=== PATIENT | female | born 1990 | race Caucasian/White ===

== ENCOUNTER 2023-03-29 07:09 | Outpatient (CLI) | payer OTHER, SELFPAY ==
--- NOTE | 2023-03-29 07:15 | CRLHL7_ITS ---
For Patients: As a result of the Cures Act, medical imaging exams and procedure reports are released immediately into your electronic medical record. You may view this report before your referring provider. If you have questions, please contact your health care provider. INDICATION: First trimester scan, establish dates. COMPARISON: None. TECHNIQUE: Real-time almodovar-scale imaging of the pelvis was performed. FINDINGS: Sonographic imaging demonstrates a single living intrauterine gestation. The embryo demonstrates a regular cardiac rate measuring 171 beats per minute. The embryo`s crown-rump length measurement of 2.1 cm corresponds to a gestational age of 8 weeks 5 days with a sonographic due date of 11/03/2023. There is a normal-appearing yolk sac. There are no gross abnormalities noted within the embryo at this early state of development. The gestational sac has a normal appearance. There is no evidence of a perigestational hemorrhage. The amount of fluid within the sac appears appropriate for gestational age. The cervix is closed. The myometrium appears normal. The ovaries are of normal size. Corpus luteal cyst left ovary. There are no suspicious fluid collections noted in the cul-de-sac. IMPRESSION: Normal first trimester OB ultrasound exam. Gestational age calculated at 8 weeks 5 days with a sonographic due date of 11/03/2023. Dictated by Jasbir Stearns MD @ 03/29/2023 10:24:37 AM (Electronically Signed)
== END 2023-03-29 07:10 | disposition home or self-care (01) ==
LOC: US 07:09
PROVIDERS: Visit Provider Physician Assistant
DX: Z34.91 Encounter for supervision of normal pregnancy, unspecified, first trimester (principal); Z3A.08 8 weeks gestation of pregnancy
CPT/HCPCS: 76817; 82565; 82570; 84156; 84450; 84460; 84520; 86592; 86703; 86762; 86787; 86803; 86850; 86900; 86901; 87086; 87340; 87491; 87591

== ENCOUNTER 2023-04-06 09:00 | Outpatient (CLI) | payer OTHER, SELFPAY | END 2023-04-06 09:01 | disposition home or self-care (01) | LOC: NFLDREF 04-09 09:00 | PROVIDERS: Visit Provider Physician Assistant | DX: O14.90 Unspecified pre-eclampsia, unspecified trimester (principal) | CPT/HCPCS: 82570; 84156 ==

== ENCOUNTER 2023-05-24 10:23 | Outpatient (CLI) | payer OTHER, SELFPAY | END 2023-05-24 10:24 | disposition home or self-care (01) | LOC: NFLDREF 10:27 | PROVIDERS: Visit Provider Obstetrics & Gynecology | DX: Z34.92 Encounter for supervision of normal pregnancy, unspecified, second trimester (principal); Z3A.16 16 weeks gestation of pregnancy | CPT/HCPCS: 81511 ==

== ENCOUNTER 2023-06-22 07:58 | Outpatient (CLI) | payer OTHER, SELFPAY ==
--- NOTE | 2023-06-22 08:15 | CRLHL7_ITS ---
For Patients: As a result of the Century Cures Act, medical imaging exams and procedure reports are released immediately into your electronic medical record. You may view this report before your referring provider. If you have questions, please contact your health care provider. INDICATION: Evaluate anatomy. COMPARISON: 03/29/2023 TECHNIQUE: Real time almodovar scale imaging of the fetus was performed as well as color Doppler analysis of the umbilical vessels. FINDINGS: Sonographic imaging demonstrates a single living intrauterine gestation. Fetus demonstrates a regular cardiac rate of 137 beats per minute. Fetus has a breech position. The placenta lies anteriorly without evidence of placenta previa. Placental edge located 6.2 cm from the internal cervical os. Amniotic fluid volume appears normal. Single deepest vertical pocket: 3.5 cm. The cervix is closed and measures 4.0 cm in length. The composite ultrasound gestational age is calculated at 20 weeks 6 days with an estimated sonographic due date of 11/03/2023. The estimated weight is 388 grams which lies at the 49th %. The following biometric measurements were obtained: Biparietal diameter: 4.7 cm/20 weeks 1 day 20th% Head circumference: 18.5 cm/20 weeks 6 days 40th% Abdominal circumference: 15.9 cm/21 weeks 0 days 48th% Femur length: 3.5 cm/21 weeks 0 days 45th% The HC/AC ratio measures: 1.16 range (1.06-1.25) On anatomic survey, there is a normal appearance of the cerebral ventricles, cavum septi pellucidi, cisterna magna and cerebellum. The nose, lips, and facial profile appear normal. The cervical, thoracic and lumbar spine are well visualized and appear normal. There is a normal four-chamber heart view and the left and right ventricular outflow tracts appear normal. The diaphragm and stomach appear normal. The kidneys and bladder also appear normal. There is a normal three-vessel cord and cord insertion site. The four extremities appear normal. IMPRESSION: Normal OB ultrasound exam with concordance of clinical and sonographic dating. No intrinsic abnormalities noted on anatomic survey. Dictated by Jasbir Stearns MD @ 06/22/2023 1:24:22 PM (Electronically Signed)
== END 2023-06-22 07:59 | disposition home or self-care (01) ==
LOC: US 08:00
PROVIDERS: Visit Provider Obstetrics & Gynecology
DX: Z34.92 Encounter for supervision of normal pregnancy, unspecified, second trimester (principal); Z3A.20 20 weeks gestation of pregnancy
CPT/HCPCS: 76805

== ENCOUNTER 2023-08-24 08:33 | Outpatient (CLI) | payer OTHER, SELFPAY | END 2023-08-24 08:34 | disposition home or self-care (01) | LOC: NFLDREF 08-30 15:48 | PROVIDERS: Visit Provider Obstetrics & Gynecology | DX: Z34.82 Encounter for supervision of other normal pregnancy, second trimester (principal) | CPT/HCPCS: 86592 ==

== ENCOUNTER 2023-08-31 08:16 | Outpatient (CLI) | payer OTHER, SELFPAY | END 2023-08-31 08:17 | disposition home or self-care (01) | LOC: NFLDREF 09-03 12:36 | PROVIDERS: Visit Provider Obstetrics & Gynecology | DX: R73.09 Other abnormal glucose (principal); O10.913 Unspecified pre-existing hypertension complicating pregnancy, third trimester; Z3A.29 29 weeks gestation of pregnancy | CPT/HCPCS: 82565; 82570; 82951; 82952; 84156; 84450; 84460; 84520 ==

== ENCOUNTER 2023-09-07 08:08 | Outpatient (CLI) | payer OTHER, SELFPAY ==
--- NOTE | 2023-09-07 08:15 | CRLHL7_ITS ---
For Patients: As a result of the Cures Act, medical imaging exams and procedure reports are released immediately into your electronic medical record. You may view this report before your referring provider. If you have questions, please contact your health care provider. INDICATION: ESSENTIAL HYPERTENSION TECHNIQUE: Real time almodovar scale imaging of the fetus was performed. COMPARISON: 06.22.23 FINDINGS: Sonographic imaging demonstrates a single living intrauterine gestation. Fetus demonstrates a regular cardiac rate of 129 beats per minute. Fetus has a vertex position. The placenta lies anteriorly. Amniotic fluid volume appears normal and there is a single deepest pocket of 5.2 cm. The estimated weight is 1945gm which lies at the 53rd %. On the prior OB ultrasound dated 06/22/2023 the estimated weight was at the 49th percentile. BPD 38th percentile. HC 31st percentile. AC 54th percentile. FL 64th percentile. The fetus was active and demonstrated normal breathing movements. There was normal flexion and extension of the trunk and extremities. IMPRESSION: Normal biophysical profile score 8/8. Sonographic gestational age 32 weeks 2 days and sonographic due date 10/31/2023. Good correlation with dates. Normal interval growth. Estimated weight 53rd percentile. Abdominal circumference 54th percentile. Dictated by Jasbir Stearns MD @ 09/07/2023 9:20:24 AM (Electronically Signed)
== END 2023-09-07 08:09 | disposition home or self-care (01) ==
LOC: US 08:10
PROVIDERS: Visit Provider Obstetrics & Gynecology
DX: O10.013 Pre-existing essential hypertension complicating pregnancy, third trimester (principal); Z3A.32 32 weeks gestation of pregnancy
CPT/HCPCS: 76816; 76819; 82565; 82570; 84156; 84450; 84460; 84520

== ENCOUNTER 2023-09-14 12:36 | Outpatient (CLI) | payer OTHER, SELFPAY ==
--- NOTE | 2023-09-14 13:00 | CRLHL7_ITS ---
For Patients: As a result of the Century Cures Act, medical imaging exams and procedure reports are released immediately into your electronic medical record. You may view this report before your referring provider. If you have questions, please contact your health care provider. INDICATION: CHRONIC HYPERTENSION COMPARISON: 09/07/2023 TECHNIQUE: Real time almodovar scale imaging of the fetus was performed. Without non-stress testing. FINDINGS: Sonographic imaging demonstrates a single living intrauterine gestation. Fetus demonstrates a regular cardiac rate of 137 beats per minute. Fetus has a vertex position. The amniotic fluid volume appears normal and there is a single deepest pocket measurement of 5.2 cm. The fetus was active and demonstrated normal breathing movements. There was normal flexion and extension of the trunk and extremities. IMPRESSION: Normal biophysical profile score of 8 out of 8. Dictated by Jasbir Stearns MD @ 09/14/2023 1:51:15 PM (Electronically Signed)
== END 2023-09-14 12:37 | disposition home or self-care (01) ==
LOC: US 12:36
PROVIDERS: Visit Provider Obstetrics & Gynecology
DX: O10.919 Unspecified pre-existing hypertension complicating pregnancy, unspecified trimester (principal)
CPT/HCPCS: 76819; 82565; 82570; 84156; 84450; 84460; 84520

== ENCOUNTER 2023-09-21 08:13 | Outpatient (CLI) | payer OTHER, SELFPAY ==
--- NOTE | 2023-09-21 08:15 | CRLHL7_ITS ---
For Patients: As a result of the Century Cures Act, medical imaging exams and procedure reports are released immediately into your electronic medical record. You may view this report before your referring provider. If you have questions, please contact your health care provider. INDICATION: chronic HTN COMPARISON: 09/14/2023 TECHNIQUE: Real time almodovar scale imaging of the fetus was performed. Without non-stress testing. FINDINGS: Sonographic imaging demonstrates a single living intrauterine gestation. Fetus demonstrates a regular cardiac rate of 145 beats per minute. Fetus has a vertex position. The amniotic fluid volume appears normal and there is a single deepest pocket measurement of 4.3 cm. The fetus was active and demonstrated normal breathing movements. There was normal flexion and extension of the trunk and extremities. IMPRESSION: Normal biophysical profile score of 8 out of 8. Dictated by Jasbir Stearns MD @ 09/21/2023 12:03:20 PM (Electronically Signed)
== END 2023-09-21 08:14 | disposition home or self-care (01) ==
LOC: US 08:14
PROVIDERS: Visit Provider Obstetrics & Gynecology
DX: O10.919 Unspecified pre-existing hypertension complicating pregnancy, unspecified trimester (principal)
CPT/HCPCS: 76819; 82565; 82570; 84156; 84450; 84460; 84520

== ENCOUNTER 2023-09-28 08:09 | Outpatient (CLI) | payer OTHER, SELFPAY ==
--- NOTE | 2023-09-28 08:15 | US_ITS ---
Final Report Patient: SCOOBY UPTON Facility:?[facility] Patient ID:?[id number] Site Patient ID:?[id number]. Site :?1990 Study:?US OB Pelvis -09/28/2023 8:47:54 AM Ordering Physician:?Genesis Carias Final Report: INDICATION: chronic HTN COMPARISON: 09/21/2023 TECHNIQUE: Real time almodovar scale imaging of the fetus was performed. Without non-stress testing. FINDINGS: Sonographic imaging demonstrates a single living intrauterine gestation. Fetus demonstrates a regular cardiac rate of 152 beats per minute. Fetus has a vertex position. The amniotic fluid volume appears normal and there is a single deepest pocket measurement of 3.3 cm. The fetus was active and demonstrated normal breathing movements. There was normal flexion and extension of the trunk and extremities. IMPRESSION: Normal biophysical profile score of 8 out of 8. Dictated by Jasbir Stearns MD @ 09/28/2023 10:43:13 AM (Electronic Signature)
== END 2023-09-28 08:10 | disposition home or self-care (01) ==
LOC: US 08:10
PROVIDERS: Visit Provider Obstetrics & Gynecology
DX: O10.919 Unspecified pre-existing hypertension complicating pregnancy, unspecified trimester (principal)
CPT/HCPCS: 76819; 82565; 82570; 84156; 84450; 84460; 84520

== ENCOUNTER 2023-10-05 08:17 | Outpatient (CLI) | payer OTHER, SELFPAY ==
--- NOTE | 2023-10-05 08:15 | US_ITS ---
Patient: SCOOBY UPTON Facility:?[facility] Patient ID:?[id number] Site Patient ID:?[id number]. Site :?1990 Study:?US-OB Pelvis -10/05/2023 9:17:14 AM Ordering Physician:JUVENAL LIANG Final Report: INDICATION: Gestational diabetes TECHNIQUE: Real time almodovar scale imaging of the fetus was performed. COMPARISON: 09/28/2023 FINDINGS: Sonographic imaging demonstrates a single living intrauterine gestation. Fetus demonstrates a regular cardiac rate of 149 beats per minute. Fetus has a vertex position. The placenta lies anteriorly. Amniotic fluid volume appears normal and there is a single deepest pocket of 5.6 cm. The estimated weight is 2643gm which lies at the 35th %. On the prior OB ultrasound dated 09/07/2023 the estimated weight was at the 53rd percentile. BPD 44th percentile. HC is 28th percentile. AC is 31st percentile. FL 41st percentile. The fetus was active and demonstrated normal breathing movements. There was normal flexion and extension of the trunk and extremities. IMPRESSION: Normal biophysical profile score 8/8. Sonographic gestational age 35 weeks 4 days and sonographic due date of 11/05/2023. Estimated weight 35th percentile. Abdominal circumference 31st percentile. Dictated by Jasbir Stearns MD @ 10/05/2023 11:42:28 AM Signed by:?Jasbir Stearns MD @10/05/2023 11:42:28 AM (Electronic Signature)
== END 2023-10-05 08:18 | disposition home or self-care (01) ==
LOC: US 08:18
PROVIDERS: Visit Provider Obstetrics & Gynecology
DX: O24.419 Gestational diabetes mellitus in pregnancy, unspecified control (principal); Z3A.35 35 weeks gestation of pregnancy
CPT/HCPCS: 76816; 76819; 82565; 82570; 84156; 84450; 84460; 84520; 87081; 87653

== ENCOUNTER 2023-10-12 08:04 | Outpatient (CLI) | payer OTHER, SELFPAY ==
--- NOTE | 2023-10-12 08:15 | US_ITS ---
Patient: SCOOBY UPTON Facility:?[facility] Patient ID:?[id number] Site Patient ID:?[id number]. Site :?1990 Study:?US-OB Pelvis OB BPP-10/12/2023 8:40:54 AM Ordering Physician:?JUVENAL HEARD Final Report: INDICATION: PRIMARY HYPERTENSION COMPARISON: 10/05/2023 TECHNIQUE: Real time almodovar scale imaging of the fetus was performed. Without non-stress testing. FINDINGS: Sonographic imaging demonstrates a single living intrauterine gestation. Fetus demonstrates a regular cardiac rate of 134 beats per minute. Fetus has a vertex position. The amniotic fluid volume appears normal and there is a single deepest pocket measurement of 5.2 cm. The fetus was active and demonstrated normal breathing movements. There was normal flexion and extension of the trunk and extremities. IMPRESSION: Normal biophysical profile score of 8 out of 8. Dictated by Jasbir Stearns MD @ 10/12/2023 10:53:54 AM Signed by:?Jasbir Stearns MD @10/12/2023 10:53:54 AM (Electronic Signature)
== END 2023-10-12 08:05 | disposition home or self-care (01) ==
LOC: US 08:04
PROVIDERS: Visit Provider Obstetrics & Gynecology
DX: O10.919 Unspecified pre-existing hypertension complicating pregnancy, unspecified trimester (principal)
CPT/HCPCS: 76819; 82565; 82570; 84156; 84450; 84460; 84520

== ENCOUNTER 2023-10-19 09:01 | Outpatient (CLI) | payer OTHER, SELFPAY ==
--- NOTE | 2023-10-19 09:15 | US_ITS ---
Patient: SCOOBY UPTON Facility:?[facility] Patient ID:?[id number] Site Patient ID:?[id number]. Site :?1990 Study:?US-OB Pelvis BPP-10/19/2023 9:46:10 AM Ordering Physician:?Genesis Carias Final Report: INDICATION: Pre-existing hypertension COMPARISON: 10/12/2023 TECHNIQUE: Real time almodovar scale imaging of the fetus was performed. Without non-stress testing. FINDINGS: Sonographic imaging demonstrates a single living intrauterine gestation. Fetus demonstrates a regular cardiac rate of 141 beats per minute. Fetus has a vertex position. The amniotic fluid volume appears normal and there is a single deepest pocket measurement of 3.5 cm. The fetus was active and demonstrated normal breathing movements. There was normal flexion and extension of the trunk and extremities. IMPRESSION: Normal biophysical profile score of 8 out of 8. Dictated by Jasbir Stearns MD @ 10/19/2023 10:04:05 AM Signed by:?Jasbir Stearns MD @10/19/2023 10:04:05 AM (Electronic Signature)
== END 2023-10-19 09:02 | disposition home or self-care (01) ==
LOC: US 09:01
PROVIDERS: Visit Provider Obstetrics & Gynecology
DX: O10.919 Unspecified pre-existing hypertension complicating pregnancy, unspecified trimester (principal)
CPT/HCPCS: 76819; 82565; 82570; 84156; 84450; 84460; 84520

== ENCOUNTER 2023-10-22 17:05 | Inpatient (IN) | payer OTHER, SELFPAY ==
[2023-10-22 17:15] VITALS: BP 144/99
[2023-10-22 17:25] VITALS: BMI 35.5
[2023-10-22 17:35] VITALS: BP 139/91; PULSE 103; RESP 20; TEMP 36.9
[2023-10-22 17:50] VITALS: BP 136/94; RESP 20
--- NOTE | 2023-10-22 18:15 | P.LDBA_ITS ---
Subjective History of Present Illness Time Seen by Provider: 18:16 Date Seen: 10/22/23 Narrative: Patient is being admitted to Labor and Delivery for IOL due to chronic HTN on medication. She is a 33 year old at 38.2 weeks gestation. Her full history and physical was dictated by Dr. Toney on 10/12/23. Please see this for details. No interval changes since she last saw us in clinic. Active movement. Rare contractions. Denies bleeding or abnormal vaginal discharge. Specific Issues/Plans Spouse: Carlos. Daughter: Mily. Baby: Girl. 1. Chronic hypertension * Labetalol 100 mg b.i.d. * ASA 81mg * Baseline pre E labs: all normal, 24 hour urine for protein: 11 * Growth ultrasound Q 4 weeks starting at 32 weeks * 10/05/23: Cephalic, SDP 5.6, EFW 35%, AC 31% * testing starting at 32 weeks = Weekly BPP * Weekly pre E labs starting at 32 weeks * Consider level 2 US/MFM consult: Patient declines at the moment, prefer FAS and if abnormal then MFM * Growth 09/07: 53%ile * Medically indicated delivery as soon as 37 weeks, discussed we could consider prolonging (38 weeks or so) if BPs remain well controlled. Pt desires 38 weeks if BP remain well controlled, scheduling form for 10/21 completed 2. Migraines; none in 3rd trimester 3. Obesity, BMI 36.1 Hemoglobin A1c: 5.3% 4. Varicella nonimmune Vaccination 5. Covid within 27 wks 08/08/23. 6. Gestational diabetes, diet controlled - Nutrition consult 09/07 7. Anemia. Hb 10.9 on 10/11. -Supplemental iron Flu vaccine: 05/24/23 TDAP 08/24/23 RSV 09/07/23 OB - Problem Based A/P Additional Plan (1) Chronic hypertension complicating or reason for care during : Status: Acute Plan: - She report only taking 50 mg of labetalol this AM due to her BP being lower than normal when she checked it at the time. She usually take her PM dose at 9 PM. - Currently BP 130s/90s. She is currently asymptomatic. - Will continue to monitor. We will give her the PM labetalol early at around 7pm if needed. (2) Gestational diabetes: Status: Acute (3) : Status: Acute (4) Anemia: Status: Acute Plan - Will proceed with IOL - Cervical ripening with cook cath. Placed at 1815 with 50 cc cervical balloon/60 cc vaginal balloon. - Will start pitocin at midnight. She is not currently mikal. OB Exam Physical Exam Vital signs: Physical exam: General: No acute distress Psych: Alert and oriented x3, full affect HEENT: Normocephalic, atraumatic Lungs: Unlabored breathing Neuro: No focal deficit. Mentating appropriately Pelvic exam: /-3, moderately soft, posterior
[2023-10-22 19:21] VITALS: BP 128/85; PULSE 99
[2023-10-22] MEDS: LABETALOL HCL 100 MG TABLET PO (20:29)
[2023-10-22] MEDS: hydrOXYzine pamoate 25 MG CAPSULE 100 MG PO (22:09)
[2023-10-22] MEDS: MORPHINE 10 MG/ML inj IM (22:10)
[2023-10-23] VITALS (48 sets, daily range): BP systolic 101–186; BP diastolic 59–101; PULSE 84–112; RESP 18; TEMP 36.6–36.9; O2SAT 99–100
[2023-10-23] MEDS: OXYTOCIN 30 unit/500 ML in NS 30 UNIT/500 ML BAG IVPB (00:09)
[2023-10-23] MEDS: LACTATED RINGERS 1000 ML 1,000 ML 125 ML IV ×3 (00:10→15:48)
[2023-10-23] MEDS: LABETALOL HCL 100 MG TABLET PO ×2 (07:53→19:45)
--- NOTE | 2023-10-23 07:58 | P.OBPN_ITS ---
Subjective Time Seen by Provider: 07:45 Date Seen: 10/23/23 Narrative: Patient is comfortable this morning, got some sleep overnight. Cook catheter removed around 6:00 am. On slow pitocin infusion since midnight. Patient largely unaware of contractions. BP well controlled, due for morning dose of labetalol. On diabetic diet. Objective Exam: General appearance: Alert, cooperative, comfortable. Vital Signs: Last Vital Signs Temp 98.4 F 10/23/23 01:50 Pulse 85 10/23/23 02:24 Resp 20 10/22/23 17:50 BP 122/84 10/23/23 02:24 Pelvic Exam Dilation (cm): 4-5 cm Effacement (%): 60 Station: -1 Comments: Posterior, vertex well applied Contractions Monitor mode: External Contraction Frequency: 1-4 minutes Contraction pattern: Irregular Contraction intensity: Mild Pitocin Rate (mU/min): 6 Assessment Assessment: induction ongoing Station: -1 Status: Category l Heart Rate Baseline: 130 Shelter Variability: Moderate (6-25) Monitor Accelerations: Present Monitor Decelerations: None Plan Plan: Pitocin induction per protocol. Continue labetalol at prescribed dosage. Monitor blood sugar. Discussed labor pain management plan with patient. She would like to consider nitrous, and definitely wants an epidural for active labor. Encouraged activity as tolerated.
--- NOTE | 2023-10-23 16:01 | PM.OBPNL ---
Subjective Time Seen by Provider: 15:45 Date Seen: 10/23/23 Narrative: Patient still comfortable. Aware of contractions, non painful. Doing inversion and lunges to assist in rotation. Objective Vital Signs: Last Vital Signs Temp 98 F 10/23/23 09:06 Pulse 104 H 10/23/23 14:16 Resp 20 10/22/23 17:50 BP 133/77 10/23/23 14:16 Pelvic Exam Dilation (cm): 5-6 cm Effacement (%): 80 Station: 0 Contractions Monitor mode: External Contraction pattern: Regular Contraction intensity: Mild Pitocin Rate (mU/min): 16 Assessment Station: 0 Status: Category l Heart Rate Baseline: 140 Monitor Accelerations: Present Monitor Decelerations: None Tracing Comments: somewhat discontinuous due to maternal repositioning Plan Plan: Nitrous analgesia initiated prior to cervical exam. Amniotomy performed, clear fluid noted. Continue to increase pitocin as needed. Epidural prn.
[2023-10-23] MEDS: ROPIVACAINE 0.2% 100 ml 100 ML 12 MG EPIDURAL (16:38)
[2023-10-23] MEDS: LIDOCAINE 2% (PF) 5 ML VIAL EPIDURAL (16:39)
--- NOTE | 2023-10-23 17:02 | PM.ANBPRC ---
[facility] Medical History (Updated 10/19/23 @ 10:23 by Melani Tony CNM) Hypertension ?I10 - Essential (primary) hypertension (ICD-10) PCOS (polycystic ovarian syndrome) ?E28.2 - Polycystic ovarian syndrome (ICD-10) Surgical History (Updated 10/12/23 @ 09:30 by Keira Toney MD) H/O wisdom tooth extraction ?K08.409 - Partial loss of teeth, unspecified cause, unspecified class (ICD-10) H/O dilation and curettage ?Z98.890 - Other specified postprocedural states (ICD-10) Family History Father Diabetes High blood pressure Mother High blood pressure Paternal Grandmother Breast cancer Maternal Grandmother Multiple myeloma Social History (Updated 10/12/23 @ 09:33 by Keira Toney MD) Narrative: Lives in [place] with and daughter, now 3 yo. Works full-time at [employer]; recruiting. No tobacco use, alcohol use during , or recreational drug use. What is your current living situation?: I presently have a place to live Problems where you live: no known problems In the past 12 months, utilities in danger of being shut off: no In past 12 months, lack of transportation kept you from medical appts, meetings, work, or getting things needed for daily living: no In the past 12 mos, have been you worried that your food would run out before you had money to buy more?: never true In the past 12 mos, the food you bought just didn't last and you didn't have money to buy more?: never true Smoking Status: Never smoker How often does anyone, including family, friends and others, physically hurt you: never How often does anyone, including family, friends and others, insult or talk down to you: never How often does anyone, including family, friends and others, threaten you with harm: never How often does anyone, including family, friends and others, scream or curse at you: never Little interest or pleasure in doing things: not at all Feeling down, depressed, or hopeless: several days Meds Home Medications and Allergies Home Medications Medication Instructions Recorded Confirmed Type docosahexaenoic acid 200 mg 200 mg PO DAILY 03/29/23 10/22/23 History capsule ( DHA) labetalol 100 mg tablet 100 mg PO BID 03/29/23 10/22/23 History acetaminophen 500 mg tablet 1,000 mg PO Q6H PRN 05/24/23 10/22/23 History (Tylenol Extra Strength) aspirin 81 mg tablet,delayed 81 mg PO QDAY 05/24/23 10/22/23 History release calcium carbonate 200 mg calcium 200 mg PO BID PRN 10/05/23 10/22/23 History (500 mg) chewable tablet (Tums) Allergies Allergy/AdvReac Type Severity Reaction Status Date / Time No Known Drug Allergies Allergy Verified 10/19/23 09:56 Results Labs Labs: Laboratory Results - last 24 hr 10/23/23 05:33 Blood Type AB Positive Antibody Screen NEGATIVE Vital Signs Vital Signs: Last Vital Signs Temp 98 F 10/23/23 09:06 Pulse 88 10/23/23 16:57 Resp 20 10/22/23 17:50 BP 142/99 H 10/23/23 16:57 Pulse Ox 100 10/23/23 16:59 Weight: 93.894 kg Height: 162.56 cm Anesthesia Procedures Epidural Insertion Patient Location: OB Start Time: 16:45 Stop Time: 17:10 Start Date: 10/23/23 Stop Date: 10/23/23 Reason for Block: primary anesthetic Patient Position: sitting Performed By: Leo Foster Preanesthetic Checklist: IV checked, risks and benefits discussed, surgical consent, monitors and equipment checked, pre-op evaluation, timeout performed and anesthesia consent Prep: chlorhexidine gluconate Monitoring: blood pressure monitoring, vibrating screed operator, continuous pulse oximetry and heart rate Approach: midline Vertebral Space: lumbar (1-5) Needle Type: Tuohy needle Injection Technique: continuous catheter (catheter) Needle gauge: 17 Needle Length (cm): 10 cm Needle Insertion Depth (cm): 5 Catheter Gauge: 19 Catheter Type: multi-orifice Catheter at skin depth (cm): 10 Test Dose Result: negative and lidocaine 1.5% with epinephrine 1 to 200,000
[2023-10-23 19:24] LABS: Hematocrit 33.8 % (33.0-51.0); Hemoglobin* 11.1 gm/dL (12.0-16.0); Mean Corpuscular HGB Conc 33 gm/dL (32-36); Mean Corpuscular Hemoglobin 29 pg (26-34); Mean Corpuscular Volume 87 fL (80-100); Platelet Count* 277 K/uL (140-440); White Blood Count* 10.84 K/uL (4.50-11.00)
[2023-10-23 19:32] LABS: Slide Review Reflex No
[2023-10-23 19:43] LABS: Alanine Aminotransferase* 12 U/L (4-35); Aspartate Amino Transferase* 28 U/L (12-35); Blood Urea Nitrogen* 8 mg/dL (5-24); Creatinine* 0.6 mg/dL (0.5-1.5); Est. Creatinine Clearance* 114.09; Estimated Glomerular Filt Rate 121 ml/min
[2023-10-23] MEDS: LIDOCAINE 1 % PF 30 ML INJECTION (19:45)
--- NOTE | 2023-10-23 19:59 | W.PM.OBVAGDE ---
OB Procedure Vag Delivery Mother Details Mother Details: The patient is a 33 year-old, 3, Para 1011, admitted on 10/22/23 at 38 2/7 weeks gestation for cervical ripening/induction of labor secondary to chronic . : 3 Para: 1 Weeks Gestation: 38.3 Admission Date: 10/22/23 Additional Details Amniotic Membrane Status: intact (upon admission) Amniotic Membrane Rupture Date: 10/23/23 Amniotic Membrane Rupture Time: 15:55 Amniotic Membrane Fluid Description: Clear Analgesia/Anesthesia Type: Epidural Waterbirth: No Pitcoin: Yes Intrapartal Events: Labor Induction Induction Method: Intracervical balloon catheter and per pitocin protocol Delivery augmentation: rupture of membranes Labor Onset: 15:55 Complete: 19:22 Pushin:30 Heart: heart tones during second stage were 130 baseline, unrecorded at moment of pushing/delivery. Delivery Details Delivery Date: 10/23/23 Delivery Time: 19:31 Route of delivery: Infant Gender: Female Infant Viability: Alive; Heart Rate Present Position at Delivery: OA Delivery Details: Delivered over small second degree perineal laceration via spontaneous vaginal delivery just after I arrived into the room and gloved. Nuchal cord x1 easily reduced over the head prior to delivery of the shoulders. Infant was placed on maternal abdomen.? Cord was clamped and cut after a >60 second delay. Nose and mouth were bulb suctioned.? Infant weight pending. 1 Minute Interval Total Score: 9 5 Minute Interval Total Score: 9 Additional Details Shoulder Dystocia: No Placenta Delivery Time: 19:36 Placental Delivery Description: Spontaneous Delivery repair: Chromic (3-0) Procedure Done: Global Laceration: Periurethral - 2nd Degree Episiotomy Description: None Blood Loss Measurement Type: QBL (250 mL) Bakri Used: No Sponge/Need Count Correct: Yes Cord Vessel Description: 3 Vessels Event Summary Status: Mother and were stable after delivery. Patient complained of headache just prior to delivery, administered acetaminophen following the precipitous delivery. Had elevated BP 140s/80s prior to delivery, one BP 186/89 (arm shaking so possible artifact) and one BP 165/77 just prior to delivery. Labs repeated, normal (plts 277, AST 28, ALT 12). Disposition: floor
[2023-10-23] MEDS: IBUPROFEN 600 MG TABLET PO (20:31)
[2023-10-24] MEDS: DOCUSATE SODIUM 100 MG CAPSULE PO ×2 (00:08→20:50)
[2023-10-24 00:11] VITALS: BP 129/82; PULSE 108; RESP 18; TEMP 36.6; O2SAT 97
[2023-10-24 03:15] VITALS: BP 135/89; PULSE 86; RESP 18; TEMP 36.5; O2SAT 97
[2023-10-24] MEDS: IBUPROFEN 600 MG TABLET PO ×2 (03:24→22:23)
[2023-10-24 06:30] LABS: Hemoglobin* 10.5 gm/dL (12.0-16.0)
--- NOTE | 2023-10-24 07:50 | P.OBPN_ITS ---
OB - PN:Subj Subjective Date Seen: 10/24/23 Patient comments OB post-: no complaints and pain well controlled [place] infant status: and doing well [place] feeding status: exclusively Narrative: Veronica is a 33 y.o. who was admitted to [facility] for induction of labor.? She had an uncomplicated NVD.? ?? The patient feels well.? The pain is well controlled with current medications.? She has no new complaints.? She is breast feeding and reports things are going well.? the patient has done well.? Vitals have been stable.? She has remained afebrile.? Has a good appetite, is tolerating a general diet.? She is voiding without difficulty.? She is passing gas and has not had a bowel movement.? She is ambulating and denies any dizziness.? Has Small amount of rubra lochia.? OB - PN: Obj Exam Physical Exam: Vital signs: Temp Pulse Resp BP Pulse Ox O2 Del Method 97.7 F 86 18 135/89 97 Room Air 10/24/23 03:15 10/24/23 03:15 10/24/23 03:15 10/24/23 03:15 10/24/23 03:15 10/24/23 03:15 Narrative: GENERAL APPEARANCE:? normal affect, alert, no distress? MOOD:? appropriate? HEENT: normocephalic, neck supple, full ROM? CHEST:? Symmetrical chest wall movement.? Normal respiratory effort.? Clear to auscultation ? HEART:? regular rate and rhythm? ABDOMEN:? soft, non-tender. Uterine fundus is firm, at Umbilicus, Midline and is appropriate for the stage of recovery.? Bowel sounds present.? PERINEUM:? mild edema of the perineum, there is a 2nd degree laceration that is healing well.? EXTREMITIES:? normal and no edema? OB - PN: Obj Data Labs Labs: Laboratory Results - last 24 hr 10/23/23 10/24/23 19:14 06:15 WBC 10.84 RBC 3.90 L Hgb 11.1 L 10.5 L Hct 33.8 MCV 87 MCH 29 MCHC 33 Plt Count 277 BUN 8 Creatinine 0.6 Estimated Creat Clear 114.09 Estimated GFR 121 AST 28 ALT 12 OB - PN: A/P Delivery Assessment and Plan (1) Chronic hypertension complicating or reason for care during : Status: Acute (2) Gestational diabetes: Status: Acute (3) Anemia: Status: Acute (4) Lactating mother: Status: Acute (5) care and examination immediately after delivery: Status: Acute Plan day: 1 Plan: routine care Comments: G 3 P 2 status post uncomplicated NVD??? 1.? Continue route PP cares? 2.? .? May see if desired? 3.? Anticipate discharge home tomorrow? 4. GDM plan 2 hr glucose test tomorrow morning. 5. CHTN on medication encouraged to stay today for monitoring, BP stable since delivery.
[2023-10-24 08:13] VITALS: BP 131/87; PULSE 89; RESP 16; TEMP 36.7; O2SAT 98
[2023-10-24] MEDS: LABETALOL HCL 100 MG TABLET PO ×2 (08:20→20:50)
--- NOTE | 2023-10-24 08:37 | PM.ANPOST ---
Post Anesthesia Note Post Anesthesia Note Patient seen: Inpatient Respiratory Status: adequate Cardiovascular Status: adequate Mental Status: baseline Pain: adequate Temp: baseline Anesthetic awareness: N/A Complications: none Follow care: none
[2023-10-24 13:21] VITALS: BP 135/88; PULSE 95; RESP 16; TEMP 36.8; O2SAT 97
[2023-10-24] MEDS: ACETAMINOPHEN 500 MG TABLET 1000 MG PO (14:58)
[2023-10-24 16:42] VITALS: BP 131/86; PULSE 95; RESP 16; TEMP 36.7; O2SAT 98
[2023-10-24 18:10] LABS: Rapid Plasma Reagin (RPR) Non Reactive (Non Reactive)
[2023-10-24 19:40] VITALS: BP 127/87; PULSE 95; RESP 20; TEMP 36.5; O2SAT 98
[2023-10-25 00:45] VITALS: BP 137/91; PULSE 91; RESP 18; TEMP 36.5; O2SAT 97
[2023-10-25 04:00] VITALS: BP 124/85; PULSE 101; RESP 16; TEMP 36.6; O2SAT 98
[2023-10-25 08:45] VITALS: BP 128/88; PULSE 80; RESP 16; TEMP 36.9; O2SAT 98
[2023-10-25] MEDS: LABETALOL HCL 100 MG TABLET PO (10:09)
[2023-10-25] MEDS: IBUPROFEN 600 MG TABLET PO (10:26)
--- NOTE | 2023-10-25 12:49 | PM.OBDSVD1 ---
Documented by User: Sruthi Connerjade 10/25/23 13:25 DS: Providers Provider Time Seen by Provider: 12:49 Date Seen: 10/25/23 Date of admission: 10/22/23 17:05 Primary care physician: Not a Local Provider Admitting Clinician: Genesis Carias MD Attending Physician on discharge: Natalia Butler MD DS: Diagnosis Discharge Diagnosis (1) care and examination immediately after delivery: Status: Acute (2) Lactating mother: Status: Acute (3) Gestational diabetes: Status: Acute Problem details: Recommended 2 hr GTT at 6 wks PP Visit (4) Chronic hypertension complicating or reason for care during : Status: Acute Exam Narrative: Exam Narrative: GENERAL APPEARANCE:? normal affect, alert, no distress MOOD:? appropriate CHEST:? clear to auscultation HEART:? regular rate and rhythm BREAST: Soft EXTREMITIES:? normal and mild edema Const: Vital Signs, click to edit/add: Vital Signs - 24 hr 10/24/23 13:21 10/24/23 16:42 10/24/23 19:40 Temperature 98.2 F 98.1 F 97.7 F Pulse Rate [Pulse Oximeter] 95 95 95 Respiratory Rate 16 16 20 Blood Pressure [Le ft Arm] 135/88 131/86 127/87 Pulse Oximetry 97 98 98 Oxygen Delivery Me thod Room Air Room Air Room Air 10/25/23 00:45 10/25/23 04:00 10/25/23 08:45 Temperature 97.7 F 97.8 F 98.5 F Pulse Rate [Pulse Oximeter] 91 101 H 80 Respiratory Rate 18 16 16 Blood Pressure [Le ft Arm] 137/91 H 124/85 128/88 Pulse Oximetry 97 98 98 Oxygen Delivery Me thod Room Air Room Air Room Air Common normals: no apparent distress OB - DS: Summary Hospital Course Hospital Course: The patient is a 33 year old G 3 P 1 at 38.2 weeks gestation that was admitted to the Center on 10/22/23 for induction of labor chronic hypertension on labetalol 100 mg BID. She had an uncomplicated vaginal delivery. She delivered a viable male/female infant. She is breast feeding and reports it is going well. the patient has done well. She is ready to be discharge. Her vitals are stable including blood pressure. Reviewed monitoring blood pressures at home and weaning signs to call for. She plans on using condoms for family planning. Her partner will eventually have vasectomy. Peripartum Data Infant delivery method: Vaginal Laceration description: Periurethral - 2nd Degree complications: none [place] Infant Gender: Female Discharge Plan: Home Status at Discharge Functional status at discharge: independent ambulation Overall status at discharge: patient is back to baseline Time Spent with Patient Time attestation: Total time spent providing and/or coordinating discharge services: Discharge Plan Discharge Disposition: Home, Self-Care Date of Admission: 10/22/23 17:05 Attending Provider on Discharge: Fatoumata Niño Primary Care Provider: Provider,Not a Local Condition: Stable Anticipated Discharge Date/Time: 10/25/23 13:00 Discharge Medications: Continued DHA 200 mg capsule 200 mg PO DAILY labetalol 100 mg tablet 100 mg PO BID calcium carbonate [Tums] 200 mg calcium (500 mg) tablet,chewable 200 mg PO BID PRN acetaminophen [Tylenol Extra Strength] 500 mg tablet 1,000 mg PO Q6H PRN ferrous sulfate 134 mg (27 mg iron) tablet 134 mg PO QMWF Qty: 60 1RF Discontinued aspirin 81 mg tablet,delayed release (DR/EC) 81 mg PO QDAY ondansetron 4 mg tablet,disintegrating 4 mg PO Q8H Qty: 30 0RF No Action (DME) lancets Misc See Rx Instructions .MEDSUPPLY Qty: 100 3RF Rx Instructions: Test blood sugar 4 times daily. (DME) Test Strips Misc See Rx Instructions .MEDSUPPLY Qty: 100 3RF Rx Instructions: Test blood sugar 4 times daily. (DME) Blood Glucose Meter Misc See Rx Instructions .MEDSUPPLY Qty: 1 0RF Rx Instructions: As directed Discharge Orders: Discharge Order (Routine); Ordered 10/25/23 Ordered By: Fatoumata Niño Patient Education: OB Vaginal/Breast Feeding Additional Instructions: Discharge instructions were reviewed with the patient including signs and symptoms of infection and home going medications.? Lifting Restrictions: 20 pounds for 6? weeks? ?? Do not drive while taking narcotic pain meds.? Off Work or School for 6 weeks.? ?? Symptoms to report to doctor:? -Bleeding that saturates more than one pad per hour? -Passing clots larger than the size of a golf ball? -Pain not relieved by prescribed medication? -Fever above 100.4 degrees Fahrenheit? -A foul vaginal odor? -Difficulty in emotions, mood and functions? -Thoughts of hurting yourself and/or ? -Painful, reddened area in your breast? -Any drainage, redness or tenderness in your IV/epidural site? -Severe headache that doesn't improve after taking medications? -Changes in vision, including temporary loss of vision, blurred vision, and/or light sensitivity? -Upper abdominal pain (usually under ribs on the right side)? -Decrease in urination or painful, frequent urinating? -Chest pain? -Shortness of breath? -Tenderness or pain with redness and/swelling in the calf(s) of your leg? ?? Follow Up in clinic: 1. Sunday or Sunday for a blood pressure check. 2. 2-week visit: discuss feeding/care concerns, review control options and screen for anxiety/depression.? 3. 6-week visit for an annual exam.? consultation services are available to all mothers and babies for the first year after delivery.? To make an appointment, please call [phone].? Activity Level: Activity as Tolerated Discharge Diet: Regular Follow Up Appointments: [facility] [Provider Group] Provider,Not a Local [Primary Care Provider] - Forms: [employer] Info Instructions Documented by User: Fatoumata Niño CNM 10/25/23 16:13 DS: Providers Provider Date of Discharge: 10/25/23 DS: Diagnosis Discharge Diagnosis (1) care and examination immediately after delivery: Status: Acute (2) Lactating mother: Status: Acute (3) Gestational diabetes: Status: Acute Problem details: Recommended 2 hr GTT at 6 wks PP Visit (4) Chronic hypertension complicating or reason for care during : Status: Acute Exam : Uterus: U/2 Lochia: scant OB - DS: Summary Hospital Course Hospital Course: The patient is a 33 year old G 3 P 1 at 38.2 weeks gestation that was admitted to the Center on 10/22/23 for induction of labor chronic hypertension on labetalol 100 mg BID and GDM1A. She had an uncomplicated vaginal delivery. She delivered a viable female infant. She is breast feeding and reports it is going well. the patient has done well. She is ready to be discharge. Her vitals are stable including blood pressure. Reviewed monitoring blood pressures at home and warning signs to call for. She plans on using condoms for family planning. Her partner will eventually have vasectomy. Time Spent with Patient Specific discharge activities: I, ?Fatoumata Niño APRN CNM, was present for visit and have reviewed and agree with documentation by certified nurse midwifery student. Discharge Plan Discharge Disposition: Home, Self-Care Date of Admission: 10/22/23 17:05 Attending Provider on Discharge: Fatoumata Niño Primary Care Provider: Provider,Not a Local Condition: Stable Anticipated Discharge Date/Time: 10/25/23 13:00 Discharge Medications: Continued DHA 200 mg capsule 200 mg PO DAILY labetalol 100 mg tablet 100 mg PO BID calcium carbonate [Tums] 200 mg calcium (500 mg) tablet,chewable 200 mg PO BID PRN acetaminophen [Tylenol Extra Strength] 500 mg tablet 1,000 mg PO Q6H PRN ferrous sulfate 134 mg (27 mg iron) tablet 134 mg PO QMWF Qty: 60 1RF Discontinued aspirin 81 mg tablet,delayed release (DR/EC) 81 mg PO QDAY ondansetron 4 mg tablet,disintegrating 4 mg PO Q8H Qty: 30 0RF No Action (DME) lancets Misc See Rx Instructions .MEDSUPPLY Qty: 100 3RF Rx Instructions: Test blood sugar 4 times daily. (DME) Test Strips Misc See Rx Instructions .MEDSUPPLY Qty: 100 3RF Rx Instructions: Test blood sugar 4 times daily. (DME) Blood Glucose Meter Misc See Rx Instructions .MEDSUPPLY Qty: 1 0RF Rx Instructions: As directed Discharge Orders: Discharge Order (Routine); Ordered 10/25/23 Ordered By: Fatoumata Niño Patient Education: OB Vaginal/Breast Feeding Additional Instructions: Discharge instructions were reviewed with the patient including signs and symptoms of infection and home going medications.? Lifting Restrictions: 20 pounds for 6? weeks? ?? Do not drive while taking narcotic pain meds.? Off Work or School for 6 weeks.? ?? Symptoms to report to doctor:? -Bleeding that saturates more than one pad per hour? -Passing clots larger than the size of a golf ball? -Pain not relieved by prescribed medication? -Fever above 100.4 degrees Fahrenheit? -A foul vaginal odor? -Difficulty in emotions, mood and functions? -Thoughts of hurting yourself and/or ? -Painful, reddened area in your breast? -Any drainage, redness or tenderness in your IV/epidural site? -Severe headache that doesn't improve after taking medications? -Changes in vision, including temporary loss of vision, blurred vision, and/or light sensitivity? -Upper abdominal pain (usually under ribs on the right side)? -Decrease in urination or painful, frequent urinating? -Chest pain? -Shortness of breath? -Tenderness or pain with redness and/swelling in the calf(s) of your leg? ?? Follow Up in clinic: 1. Sunday or Sunday for a blood pressure check. 2. 2-week visit: discuss infant feeding/care concerns, review control options and screen for anxiety/depression.? 3. 6-week visit for an annual exam.? consultation services are available to all mothers and babies for the first year after delivery.? To make an appointment, please call [phone].? Activity Level: Activity as Tolerated Discharge Diet: Regular Follow Up Appointments: [facility] [Provider Group] Provider,Not a Local [Primary Care Provider] - Forms: [employer] Info Instructions
== END 2023-10-25 14:13 | disposition home or self-care (01) | DRG 807 ==
PROVIDERS: Admitting Provider Obstetrics & Gynecology; Visit Provider Obstetrics & Gynecology
DX: O10.02 Pre-existing essential hypertension complicating childbirth (principal); Z37.0 Single live birth; O24.420 Gestational diabetes mellitus in childbirth, diet controlled; O71.82 Other specified trauma to perineum and vulva; O99.214 Obesity complicating childbirth; O99.02 Anemia complicating childbirth; D64.9 Anemia, unspecified; Z3A.38 38 weeks gestation of pregnancy
CPT/HCPCS: 01967; 36415; 59200; 82565; 82570; 84156; 84450; 84460; 84520; 85018; 85027; 86592; 86850; 86900; 86901; 88307; A9270; C1726; J2001; J2270; J2371; J2795; J7120

== ENCOUNTER 2023-10-30 10:44 | Outpatient (CLI) | payer OTHER, SELFPAY | END 2023-10-30 10:45 | disposition home or self-care (01) | PROVIDERS: Visit Provider Obstetrics & Gynecology | DX: O11.4 Pre-existing hypertension with pre-eclampsia, complicating childbirth (principal); I10 Essential (primary) hypertension; D64.9 Anemia, unspecified | CPT/HCPCS: 82565; 84450; 84460; 84520; 84550 ==

== ENCOUNTER 2023-12-13 15:52 | Outpatient (CLI) | payer OTHER, SELFPAY ==
--- OUTSIDE RECORDS SUMMARY | 2023-12-13 15:57 | XMS_ITS | Clinical Summary ---
Author Name Unknown Organization [facility] Address [address] [place] [address] Care Team Providers Care Form Setter/Driver Name Role Phone Jacklyn Gregorio DO Primary Care Provider Source Comments You are receiving this document as you are listed as the primary care provider,follow-up provider, or the patient has been referred to you for consultation.This is in compliance with the Medicare and[facility] EHR Incentive [facility],which states Providers who transition their patient to another setting of careor provider of care or refers their patient to another provider of care shouldprovide summary care record for each transition of care or referral. Dep-Xplora Allergies Active Allergy Reactions Criticality Noted Date Comments Other 07/23/2018 Patch Test Results 07-23-18 Very Strong/Strong None Mild None Doubtful (Posssible Irritant) Fragrance Mix II Balsam of [place] Methylisothiazolinone Peppermint oil Gold Sodium Thiosulfate Turpentine oil Aluminum Chloride hexahydrate Disodium EDTA Phenoxyethanol Udderly smooth body cream Malaleuca bath bar Medications Medication Sig Dispensed Refills Start Date End Date Status labetalol (TRANDATE) 100 MG tabletIndications:Ess ential hypertension (HRC) Take 1 Tablet (100 mg) by mouth two times a day. 180 Tablet 3 03/09/2023 03/08/2024 Active Active Problems Patient Care Coordination No te Formatting of this note migh t be different from the original. HP Disease and Case Management: Veronica Cruz identified due to . Working with patient during and the initial period to provide support, education, resources. Dina Breen RN 02/09/2020, 11:39 AM Problem Noted Date Diagnosed Date PCOS (polycystic ovarian syndrome) 12/28/2021 Prediabetes 12/28/2021 Allergic contact dermatitis due to other agents 07/23/2018 Overview: search codes 1: [id number] search codes 2: [id number] Essential hypertension 04/10/2018 Obesity 09/13/2012 Comments Yes Resolved Problems Problem Noted Date Diagnosed Date Resolved Date (spontaneous vaginal delivery) 07/19/2020 09/03/2020 Chorioamnionitis 07/19/2020 09/03/2020 Encounter for induction of labor 07/18/2020 09/03/2020 38 weeks gestation of 07/18/2020 09/03/2020 Polyhydramnios in third trimester 07/18/2020 09/03/2020 Anemia during in third trimester 07/18/2020 09/03/2020 Overview: hgb 10.6 Obesity in 07/18/2020 021 Overview: prepreg BMI 32 Excessive growth affec ting management of in third trimester 07/18/2020 09/03/19 21 Overview: AC 92%ile 07/09/20 Pre-existing essential hyper tension complicating 12/22/2019 09/03/2020 Overview: Started on baby ASA High-risk supervision 12/22/2019 09/03/2020 Elevated BP without diagnosis of hypertension 11/27/19 18 04/10/2018 Viral wart on finger 11/26/2017 021 Other specified dyspareunia 09/13/2012 09/30/2013 Overview: Dyspareunia Contraceptive management 09/13/2012 Immunizations Name Administration Dates Next Due 4vHPV (Gardasil) 10/18/2010,07/01/2010, 8 DTP 11/11/1994, 2,04/13/1990,1989,1989 Fluzone Qiv Multidose Vial 0 .25 (6-35 Mos) 05/22/2019 HepA Adult (19+ yrs) 11/26/2017,07/01/2010 HepB Ped/Adol (0-18 yrs) 09/30/1999,04/13/1999,0 03/25/1999 Hib/HBV 09/14/1992,01/17/1991 Influenza (Flucelvax), Prese rv Free QIV 05/20/2021 Influenza (Fluzone 0.25, 6-35 mos) 04/22/2013 Influenza IIV4 (Quadrivalent ) 0.5mL (16302) 05/20/2021,05/27/2020 Influenza, Unspecified Formulation 06/25/2019, MMR 06/27/2002,01/17/1991 Pfizer Monovalent 12+ Purple Top 12/10/2020,04/0 04/2021 Polio, Unspecified Formulation 2,04/13/1990,1989,1989 TDAP (BOOSTRIX) 10/26/2015 Tdap 05/27/2020 Family History Medical History Relation Name Comments Diabetes Father Lloyd Diabetes, Type II Father Lloyd Hypertension Father Lloyd Cancer Mother Angelika Skin Hypertension Mother Angelika Cancer Maternal Grandfather Amilcar sarcoma Cancer Maternal Grandmother Rachel Multipl e myeloma Cancer Paternal Grandfather lung- s moker Cancer Paternal Grandmother Pompa Breast Cancer, Breast Paternal Grandmother Pompa early 40s Spont Abortions Sister Cancer, Colon Negative Family History Cancer, Ovary Negative Family History Heart Disease Negative Family History Stroke Negative Family History Relation Name Status Comments Father Lloyd Alive Mother Angelika Alive Maternal Grandfather Amilcar Maternal Grandmother Rachel Paternal Grandfather Paternal Grandmother Pompa Sister Alive Social History Tobacco Use Types Packs/Day Years Used Date Smoking Tobacco: Never Smokeless Tobacco: Never Tobacco Cessation:Counseling Given: Not Answered Alcohol Use Standard Drinks/Week Comments Not Currently 0 (1 standard drink = 0.6 oz pur e alcohol) rarely PHQ-2 Answer Date Recorded PHQ-2 Score 0 02/02/2023 Financial Resource Strain Answer Date R ecorded Is it hard for you to pay fo r the very basics like food, housing, medical care or heating? No 03/08/2023 Food Insecurity Answer Date Recorded Does your food run out before you have the money to buy more? No 03/08/2023 Transportation Needs Answer Date Record ed Does a lack of transportatio n keep you from your medical appointments or from getting your medications? No 023 Depression Answer Date Recor ded Last EPDS Total Score 6 09/03/2020 Last EPDS Self Harm Result 0-->never 09/03 Comments Yes Sex and Gender Information Value Date Recorded Sex Assigned at Not on file Gender Identity Not on file Sexual Orientation Not on file Last Filed Vital Signs Vital Sign Reading Time Taken Comments Blood Pressure 115/84 03/09/2023 8:03 AM CDT Pulse 90 03/09/2023 8:03 AM CDT Temperature 36.8 ??C (98.2 ??F) 07/20/2020 7:51 PM CS T Respiratory Rate 16 07/20/2020 7:51 PM CLINICAL LAB CLERK Oxygen Saturation 99% 07/19/2020 1:14 AM CLINICAL LAB CLERK Inhaled Oxygen Concentration - - Weight 97.5 kg (215 lb) 03/09/2023 7:53 AM CDT Height 164.5 cm (5' 4.76) 03/09/2023 7:53 AM CD T Body Mass Index 36.04 03/09/2023 7:53 AM CDT Plan of Treatment Health Maintenance Due Date Last Done Comments IPV (Polio) (4 of 4 - 4-dose series) 1993 09/13/1991, 04/13/1990, 1989, Additional history exists COVID-19 Vaccine ( season) 2023 12/10/2020, 11/19/2020 Influenza (#1) 2023 05/20/2021, 03/2021, 05/27/2020, Additional history exists Prediabetes: HGBA1C 02/03/2024 02/02/2023, 12/28/2021, 01/06/2020, Additional history exists Adult Preventive Visit 03/09/2025 3, 12/28/2021, 12/06/2020, Additional history exists Cervical Cancer Screening 09/03/20252020, 11/14/2016, 09/30/2013 DTaP/Tdap/Td (8 - Tdap) 05/27/2030 05/27/20 20, 10/26/2015, 11/11/1994, Additional history exists Zoster/Shingles (1 of 2) 2039 Hib Completed 09/14/1992, 01/17/1991 HepB Completed 09/30/1999, 08/1998, 03/25/1999, Additional history exists HPV Vaccine Completed 10/18/2010, 06/13, 03/04/2008 HepA Completed 11/26/2017, 07/01/2010 HIV Screening (Preventive Services) Completed 01/06/2020, 07/30/2019, 11/14/2016 Hep C Screening (Preventive Services) Completed 12/28/2021 MCV4 Aged Out No longer eligi ble based on patient's age to complete this topic Pneumococcal Aged Out No longer eligi ble based on patient's age to complete this topic Procedures Procedure Name Priority Date/Time Associated Diagnosis Comments HGB A1C Routine 02/02/2023 7:34 AM CDT Prediabetes HEPATITIS C ANTIBODY, WITH REFLEX Routine 12/28/2021 8:45 AM CDT Need for hepatitis C screening test PAP TEST Routine 09/03/2020 12:39 PM CLINICAL LAB CLERK Screening for malignant neoplasm of cervix HIV 1/2 AG/AB 4TH GEN Routine 01/06/2020 11:58 AM CDT Screening examination for venereal disease from Last 3 Months or Most Recently Relevant to Health Maintenance Results * Hgb A1C (Expected: Now) - Collect in Lab (02/02/2023 7:34 AM CDT) Hemoglobin A1C 5.6 <=5.6 % 02/02/2023 2:39 PM CDT [facility] Estimated Average Glucose (Calc) 114 < 117 mg/dL 02/02/2023 2:39 PM CDT [facility] Comment:Estimated average gl ucose (eAG) converts A1c into glucose units (mg/dL) and estimates average glucose over the past approximately 3 months. The eAG reference interval (<117 mg/dL) corresponds to an A1c of <5.7%. Blood Venipuncture / Unknown 02/02/2023 7:34 AM CDT 02/02/2023 7:34 AM CDT Lucille Lambert PA-C LAB_1 Performing Organization Address [facility] Co de Phone Number [facility] [address] [phone] * Hepatitis C Virus Lucy with Reflex (12/28/2021 8:45 AM CDT) Hepatitis C Antibody Negative (Non Reactive) Negative (Non Reactive) 12/28/2021 1:38 PM CDT [facility] Comment:Antibodies to HCV no t detected. Does not exclude the possiblity of exposure to HCV. Blood Venipuncture / Unknown 12/28/2021 8:45 AM CDT 12/28/2021 8:51 AM CDT Lucille Lambert PA-C LAB_1 Performing Organization Address [facility] Co de Phone Number [facility] [address] [place], [place] [id number] [place] [address] * PAP Test (09/03/2020 12:39 PM CLINICAL LAB CLERK) Case Report Pap ? Case: [id number] ? Authorizing Provider: ??Re Nagel, ROGELIO, CASHIER CHECKER ?? Collected: ? 09/03/2020 1239 ? [facility] ? Received: ?09/03/2020 1740 ? Obstetrics/Gyneco logy ? First Screen: ?Lizzy Huitron CT ? (ASCP) ? Specimen: ?Pap Test, Routine, Cervix/Endocervix ? 09/13/2020 1:23 PM CLINICAL LAB CLERK [facility] Pap Specimen Adequacy Satisfactory for evaluation, endocervical/kwan sformation zone component present. 09/13/2020 1:23 PM CLINICAL LAB CLERK [facility] Pap Interpretation Negative for intraepithelial lesion or malignancy (NILM). 09/13/2020 1:23 PM CLINICAL LAB CLERK [facility] Pap Disclaimer The Pap test is a screening test designed to aid in the detection of cervical cancer and its precursor lesions. It is not a diagnostic procedure and should not be used as the sole means of detecting cervical cancer. Both false-positive and false-negative results may occur. 09/13/2020 1:23 PM CLINICAL LAB CLERK [facility] Gross Description The specimen is received in SurePath fixative and properly labeled. 1 Pap-stained SurePath slide is prepared. 09/13/2020 1:23 PM CLINICAL LAB CLERK [facility] Embedded Images 1:23 PM CLINICAL LAB CLERK [facility] Other Specimen Type ENTIRE ENDOCERVIX / Unknown 09/03/2020 12:39 PM CLINICAL LAB CLERK 09/03/2020 5:40 PM CLINICAL LAB CLERK Comment:LMP: Patient's last menstrual period was 10/16/2019 (exact date). Re Nagel APRN, [facility] PATHOLOGY Performing Organization Address [facility] Co de Phone Number [facility] [address] * HIV 1/2 Ag/Ab 4th Generation (01/06/2020 11:58 AM CDT) HIV 1/2 Antigen/Antib amanda (4th generation) Negative (Non Reactive) Negative (Non Reactive) 01/06/2020 3:12 PM CDT [facility] Comment:HIV-1 p24 Antigen an d HIV-1/HIV-2 Antibody not detected Blood Venipuncture / Unknown 01/06/2020 11:58 AM CDT 01/06/2020 11:59 AM CDT Neida Mendez APRN, [facility] LAB_1 Performing Organization Address [facility] de Phone Number [facility] [employer] from Last 3 Months or Most Recently Relevant to Health Maintenance Advance Directives * Full Code (Latest Code Status on File) Date Activated Date Inactivated Comments 07/17/2020 8:56 PM 07/21/2020 1:32 AM * Full Code Date Activated Date Inactivated Comments 08/14/2019 5:36 PM 08/14/2019 8:26 PM Care Teams Form Setter/Driver Relationship Specialty Start Date End Date Jacklyn Gregorio DO [address] [place] [address] PCP - General Family Practice 02/06/23
== END 2023-12-13 15:53 | disposition home or self-care (01) ==
PROVIDERS: PCP Family Medicine; Visit Provider Family Medicine
DX: D64.9 Anemia, unspecified (principal); I10 Essential (primary) hypertension; Z13.220 Encounter for screening for lipoid disorders; R42 Dizziness and giddiness
CPT/HCPCS: 80053; 80061; 82728; 84443

== ENCOUNTER 2024-01-08 16:43 | Outpatient (CLI) | payer OTHER, SELFPAY ==
--- OUTSIDE RECORDS SUMMARY | 2024-01-08 16:46 | XMS_ITS | Clinical Summary ---
Author Organization [facility] Address [address] [place] [address] Care Team Providers [facility] Name Role Phone BrysonRowdy robertslam Dunham DO Primary Care Provider Source Comments You are receiving this document as you are listed as the primary care provider,follow-up provider, or the patient has been referred to you for consultation.This is in compliance with the Medicare and[facility] E[facility] Incentive [facility],which states Providers who transition their patient to another setting of careor provider of care or refers their patient to another provider of care shouldprovide summary care record for each transition of care or referral. Vimty Allergies Active Allergy Reactions Criticality Noted Date Comments Other 07/23/2018 Patch Test Results 07-23-18 Very Strong/Strong None Mild None Doubtful (Posssible Irritant) Fragrance Mix II Balsam of [place] Methylisothiazolinone Peppermint oil Gold Sodium Thiosulfate Turpentine [...] other agents 07/23/2018 Overview: search codes 1: [id number] search codes 2: [id number] Essential hypertension 04/10/2018 [...] mos) 04/22/2013 Influenza IIV4 (Quadrivalent ) 0.5mL (05174) 05/20/2021,05/27/2020 Influenza, Unspecified Formulation 06/25/2019, MMR 06/27/2002,01/17/1991 [...] Angelika Alive Maternal Grandfather Amilcar Maternal Grandmother Archel Paternal Grandfather Paternal Grandmother Pompa Sister Alive [...] T Respiratory Rate 16 07/20/2020 7:51 PM RESIN COATER Oxygen Saturation 99% 07/19/2020 1:14 AM RESIN COATER Inhaled Oxygen Concentration - - Weight 97.5 [...] COVID-19 Vaccine ( season) 2023 12/10/2020, 11/19/2020 Prediabetes: HGBA1C 02/03/2024 02/02/2023, 12/28/2021, 01/06/2020, Additional history exists Influenza (Season Ended) 2024 021, 05/20/2021, 05/27/2020, Additional history exists Adult Preventive Visit 03/09/2025 [...] test PAP TEST Routine 09/03/2020 12:39 PM RESIN COATER Screening for malignant neoplasm of cervix HIV 1/2 AG/AB 4TH GEN Routine 01/06/2020 11:58 AM CDT Screening examination for venereal disease from Last 3 Months or Most Recently Relevant to Health Maintenance Results * Hgb A1C (Expected: Now) - Collect in Lab (02/02/2023 7:34 AM CDT) Hemoglobin A1C 5.6 <=5.6 % 02/02/2023 2:39 PM CDT [facility] Estimated Average Glucose (Calc) 114 < 117 mg/dL 02/02/2023 2:39 PM CDT [facility] Comment:Estimated average gl ucose (eAG) converts A1c into glucose units (mg/dL) and estimates average glucose over the past approximately 3 months. The eAG reference interval (<117 mg/dL) corresponds to an A1c of <5.7%. Blood Venipuncture / Unknown 02/02/2023 7:34 AM CDT 02/02/2023 7:34 AM CDT Lucille Lambert PA-C LAB_1 Performing Organization Address [facility] de Phone Number [facility] [address] [phone] * Hepatitis C Virus Lucy with Reflex (12/28/2021 8:45 AM CDT) Hepatitis C Antibody Negative (Non Reactive) Negative (Non Reactive) 12/28/2021 1:38 PM CDT [facility] Comment:Antibodies to HCV no t detected. Does not exclude the possiblity of exposure to HCV. Blood Venipuncture / Unknown 12/28/2021 8:45 AM CDT 12/28/2021 8:51 AM CDT Lucille Lambert PA-C LAB_1 Performing Organization Address [facility] de Phone Number [facility] [address] [place], [place] [address] * PAP Test (09/03/2020 12:39 PM RESIN COATER) Case Report Pap ? Case: [id number] ? Authorizing Provider: ??Re Nagel, INSURANCE INSPECTOR, COFFEE MAKER SERVICER ?? Collected: ? 09/03/2020 1239 ? [facility] ? Received: ?09/03/2020 1740 ? Obstetrics/Gyneco logy ? First Screen: ?Lizzy Huitron CT ? (ASCP) ? Specimen: ?Pap Test, Routine, Cervix/Endocervix ? 09/13/2020 1:23 PM RESIN COATER [facility] Pap Specimen Adequacy Satisfactory for evaluation, endocervical/kwan sformation zone component present. 09/13/2020 1:23 PM RESIN COATER [facility] Pap Interpretation Negative for intraepithelial lesion or malignancy (NILM). 09/13/2020 1:23 PM RESIN COATER [facility] Pap Disclaimer The Pap test is a screening test designed to aid in the detection of cervical cancer and its precursor lesions. It is not a diagnostic procedure and should not be used as the sole means of detecting cervical cancer. Both false-positive and false-negative results may occur. 09/13/2020 1:23 PM RESIN COATER [facility] Gross Description The specimen is received in SurePath fixative and properly labeled. 1 Pap-stained SurePath slide is prepared. 09/13/2020 1:23 PM RESIN COATER [facility] Embedded Images 1:23 PM RESIN COATER [facility] Other Specimen Type ENTIRE ENDOCERVIX / Unknown 09/03/2020 12:39 PM RESIN COATER 09/03/2020 5:40 PM [facility] CO[facility] Comment:LMP: Patient's last menstrual period was 10/16/2019 (exact date). Re Nagel APRN, COFFEE MAKER SERVICER LAB PATHOLOGY Performing Organization Address [facility] Co de Phone Number [facility] [address] * HIV 1/2 Ag/Ab 4th Generation (01/06/2020 11:58 AM CDT) HIV 1/2 Antigen/Antib amanda (4th generation) Negative (Non Reactive) Negative (Non Reactive) 01/06/2020 3:12 PM CDT [facility] Comment:HIV-1 p24 Antigen an d HIV-1/HIV-2 Antibody not detected Blood Venipuncture / Unknown 01/06/2020 11:58 AM CDT 01/06/2020 11:59 AM CDT Neida Mendez APRN, [facility] LAB_1 Performing Organization Address [facility] Co de Phone Number [facility] [address] from Last 3 Months or Most Recently Relevant to Health Maintenance Advance Directives * Full Code (Latest Code Status on File) Date Activated Date Inactivated Comments 07/17/2020 8:56 PM 07/21/2020 1:32 AM * Full Code Date Activated Date Inactivated Comments 08/14/2019 5:36 PM 08/14/2019 8:26 PM Care Teams [facility] Relationship Specialty Start Date End Date Jacklyn Gregorio DO [address] [place] [address] PCP - General Family Practice 02/06/23
--- NOTE | 2024-01-08 17:00 | CRLHL7_ITS ---
For Patients: As a result of the Century Cures Act, medical imaging exams and procedure reports are released immediately into your electronic medical record. You may view this report before your referring provider. If you have questions, please contact your health care provider. INDICATION: Right upper quadrant pain COMPARISON: none TECHNIQUE: Real time almodovar scale imaging and color Doppler analysis was performed of the right upper quadrant. FINDINGS: The liver measures 17.2 cm and has diffusely increased vascularity. There is a normal appearance of the hepatic IVC and proximal abdominal aorta. There is no evidence of ascites. The gallbladder is of normal size and there are numerous echogenic and shadowing stones within the gallbladder lumen. The gallbladder wall measures 2.1 mm in thickness. The common bile duct is of normal size and measures 3.0 mm in diameter at the level of the anabel hepatis. The pancreas is not well visualized. There is no evidence of a stone or hydronephrosis within the right kidney. The right kidney measures 11.6 cm in length. IMPRESSION: Diffuse hepatic steatosis. Cholelithiasis. The gallbladder is moderately filled with echogenic and shadowing gallstones. Dictated by Jasbir Stearns MD @ 01/09/2024 11:53:09 AM (Electronically Signed)
== END 2024-01-08 16:44 | disposition home or self-care (01) ==
LOC: US 16:44
PROVIDERS: Visit Provider Internal Medicine
DX: R10.11 Right upper quadrant pain (principal); K76.0 Fatty (change of) liver, not elsewhere classified
CPT/HCPCS: 76705

== ENCOUNTER 2024-03-07 14:37 | Day surgery (SDC) | payer OTHER, SELFPAY ==
[2024-03-07 14:39] VITALS: BP 179/108; PULSE 97; RESP 22; TEMP 36.1; O2SAT 100; BMI 36.0
--- NOTE | 2024-03-07 14:48 | ED_ITS ---
HPI - General Adult General Chief complaint: Abdominal Pain Stated complaint: gallbladder issue Time Seen by Provider: 03/07/24 14:43 History of Present Illness HPI narrative: Patient presents to the emergency department complaining of abdominal pain. Patient states she has a history of gallstones and had a surgery scheduled to get gallbladder removed but cancelled it. Patient says this has happened before however normally resolves after a few minutes. 33-year-old woman presenting to the emergency department with concern of flare of gallbladder related pain. Had a chicken salad sandwich and started having escalating pain over the last little more than an hour. Does have known gallbladder disease with cholelithiasis. She describes some question as to whether not the pain she had been having or related to some sort of gastritis and has been taking Nexium. She does describe waking most mornings with stomach pains. She says this is not the usual. Last flare has been some time and was anticipating cholecystectomy this last February 17 but canceled or postponed as had been doing better. Has seen General surgery here in consultation. She has not had any fever. Is nauseated but has been vomiting. Is in a lot of pain she says with and achy type pain but ?times a billion. No constipation. Abdominal ultrasound from 01/08/2024 as below Right upper quadrant pain COMPARISON: none TECHNIQUE: Real time almodovar scale imaging and color Doppler analysis was performed of the right upper quadrant. FINDINGS: The liver measures 17.2 cm and has diffusely increased vascularity. There is a normal appearance of the hepatic IVC and proximal abdominal aorta. There is no evidence of ascites. The gallbladder is of normal size and there are numerous echogenic and shadowing stones within the gallbladder lumen. The gallbladder wall measures 2.1 mm in thickness. The common bile duct is of normal size and measures 3.0 mm in diameter at the level of the anabel hepatis. The pancreas is not well visualized. There is no evidence of a stone or hydronephrosis within the right kidney. The right kidney measures 11.6 cm in length. IMPRESSION: Diffuse hepatic steatosis. Cholelithiasis. The gallbladder is moderately filled with echogenic and shadowing gallstones. Related Data Home Medications ?Medication ?Instructions ?Recorded ?Confirmed docosahexaenoic acid 200 mg 200 mg PO DAILY 03/29/23 02/18/24 capsule ( DHA) esomeprazole magnesium 20 mg 20 mg PO QDAY 02/07/24 02/18/24 capsule,delayed release (Nexium) Previous Rx's ?Medication ?Instructions ?Recorded labetalol 100 mg tablet 200 mg (2 x 100 mg) PO BID #360 12/13/23 tabs fluconazole 150 mg tablet 150 mg PO ONCE PRN #1 tab 03/07/24 Allergies Allergy/AdvReac Type Severity Reaction Status Date / Time No Known Drug Allergies Allergy Verified 02/18/24 08:33 Review of Systems Status of ROS: Reports: 6 or more systems reviewed and unremarkable except as noted in History and below [facility] Medical History RUQ pain ?R10.11 - Right upper quadrant pain (ICD-10) Obesity (BMI 30-39.9) ?E66.9 - Obesity, unspecified (ICD-10) Headache ?R51.9 - Headache, unspecified (ICD-10) Gestational diabetes ?O24.419 - Gestational diabetes mellitus in , unspecified control (ICD-10) Anemia ?D64.9 - Anemia, unspecified (ICD-10) Migraine ?G43.909 - Migraine, unspecified, not intractable, without status migrainosus (ICD-10) Hypertension (2010) ?I10 - Essential (primary) hypertension (ICD-10) PCOS (polycystic ovarian syndrome) ?E28.2 - Polycystic ovarian syndrome (ICD-10) Surgical History Spontaneous vaginal delivery ?O80 - Encounter for full-term uncomplicated delivery (ICD-10) H/O wisdom tooth extraction (2009) ?K08.409 - Partial loss of teeth, unspecified cause, unspecified class (ICD- 10) H/O dilation and curettage (2019) ?Z98.890 - Other specified postprocedural states (ICD-10) Family History Father Diabetes High blood pressure, Onset Age: 23 Paternal Grandmother Breast cancer, Onset Age: 39 Maternal Grandmother Multiple myeloma Maternal Grandfather Soft tissue sarcoma Sister Anxiety disorder Social History Narrative: , research recruiter for mental health, 2 daughters Works full-time at [employer]; recruiting. Few days a week from home Lifetime nonsmoker Rare alcohol use No drug use No regular exercise used to exercise a lot played hockey and lifted weights What is your current living situation?: I presently have a place to live Problems where you live: no known problems In the past 12 months, utilities in danger of being shut off: no In past 12 months, lack of transportation kept you from medical appts, meetings, work, or getting things needed for daily living: no In the past 12 mos, have been you worried that your food would run out before you had money to buy more?: never true In the past 12 mos, the food you bought just didn't last and you didn't have money to buy more?: never true Smoking Status: Never smoker How often does anyone, including family, friends and others, physically hurt you : never How often does anyone, including family, friends and others, insult or talk down to you: never How often does anyone, including family, friends and others, threaten you with harm: never How often does anyone, including family, friends and others, scream or curse at you: never Little interest or pleasure in doing things: not at all Feeling down, depressed, or hopeless: not at all Exam Narrative: Exam Narrative: Pleasant. Clearly very uncomfortable. Labored in her breathing. Seated on the edge of the bed. Mildly diaphoretic. Large scars on the left shoulder. No pain to percussion of the flanks. She is otherwise though with moderate pain in the right upper quadrant but most pain is exacerbated by palpation in the epigastrium. Abdomen is overweight and soft. Extremities are well perfused without edema. Heart in elevated rate with regular rhythm. Lungs are clear. Const: Vital Signs, click to edit/add: Vital Signs - 24 hr 03/07/24 14:39 Temperature 97.0 F L Pulse Rate [Right Pulse Oximeter] 97 Respiratory Rate 22 Blood Pressure [Ri ght Upper Arm] 179/108 H Pulse Oximetry 100 Oxygen Delivery Me thod Room Air Documenting provider has reviewed patient's vital signs: yes Course Vital Signs Vital signs: Initial Vital Signs Temperature 97.0 F L 03/07/24 14:39 Temperature Source Temporal Artery Scan 03/07/24 14:39 Pulse Rate 97 03/07/24 14:39 Pulse Rhythm Regular 03/07/24 14:39 Pulse Strength 3+ Normal 03/07/24 14:39 Respiratory Rate 22 03/07/24 14:39 Blood Pressure 179/108 H 03/07/24 14:39 Blood Pressure Mean 131 H 03/07/24 14:39 Blood Pressure Position Sitting 03/07/24 14:39 Pulse Oximetry 100 03/07/24 14:39 Oxygen Delivery Method Room Air 03/07/24 14:39 Vital Signs Temperature 97.0 F L 03/07/24 14:39 Pulse Rate 97 03/07/24 14:39 Respiratory Rate 22 03/07/24 14:39 Blood Pressure 179/108 H 03/07/24 14:39 Pulse Oximetry 100 03/07/24 14:39 Oxygen Delivery Method Room Air 03/07/24 14:39 Temperature 97.0 F L 03/07/24 14:39 Pulse Rate 97 03/07/24 14:39 Respiratory Rate 22 03/07/24 14:39 Blood Pressure 179/108 H 03/07/24 14:39 Pulse Oximetry 100 03/07/24 14:39 Oxygen Delivery Method Room Air 03/07/24 14:39 Medications Administered Medications: Discontinued Medications Generic Name Dose Route Start Last Admin Trade Name Freq PRN Reason Stop Dose Admin Amoxicillin/Clavulanate Potassium 875 mg 03/07/24 17:37 03/07/24 17:41 Amoxicillin/Clavulanate 875 Mg/125 Mg Tablet PO 03/07/24 17:38 875 mg ONCE ONE Administration Fluconazole 100 mg 03/07/24 17:48 03/07/24 18:07 Fluconazole 100 Mg Tablet PO 03/07/24 17:49 100 mg ONCE ONE Administration Sodium Chloride 1,000 mls @ 1,000 mls/hr 03/07/24 14:53 03/07/24 15:13 0.9 % Sodium Chloride 1000 Ml IV 03/07/24 15:52 1,000 mls/hr .Q1H ONE Administration Ketorolac Tromethamine 15 mg 03/07/24 14:53 03/07/24 15:18 Ketorolac 15 Mg/Ml Inj IVP 03/07/24 14:54 15 mg ONCE ONE Administration Morphine Sulfate 4 mg 03/07/24 14:53 03/07/24 15:16 Morphine 4 Mg/Ml Inj IVP 03/07/24 14:54 4 mg ONCE ONE Administration Ondansetron HCl 4 mg 03/07/24 14:53 03/07/24 15:14 Ondansetron 2 Mg/Ml Inj IVP 03/07/24 14:54 4 mg ONCE ONE Administration Medical Decision Making MDM Narrative Medical decision making narrative: This really does seem consistent with another attack of biliary colic. Would rule out vascular dissection or pancreatitis though I think these to her unlik erica. Will check labs however. Apparently labs were normal with prior evaluation. Check also for lipase. Try to give her some relief of pain and nausea. I would anticipate consult General surgery. Markedly improved with pain medication and fluids. On repeat exam she is minimally tender in the epigastrium. White count is elevated at little over 16,000. AST of 53 -- minimally elevated. Underlying history of fatty liver. Normal lipase and CRP I did discuss ultrasound with psychiatric nurse. Positive Cason's and with cholelithiasis. Radiology over-read as below Right upper quadrant grayscale and limited color Doppler ultrasound. FINDINGS: Liver: Diffusely echogenic which is most commonly due to hepatic steatosis. No suspicious focal lesion. No intrahepatic biliary ductal dilatation. Smooth contour. Normal hepatopedal portal venous blood flow. Gallbladder: Gallstones. Positive sonographic Cason`s sign. Normal wall thickness. No pericholecystic free fluid. CBD: Not seen. Pancreas: Normal where visualized. The pancreas is partially obscured and therefore incompletely evaluated. Right Kidney: Normal echotexture. No hydronephrosis. No convincing sonographic evidence of nephrolithiasis. Midline Vasculature: Unremarkable where visualized. Peritoneal Cavity: No significant ascites. Additional Findings: None. IMPRESSION: 1. Cholelithiasis. Positive sonographic Cason`s sign. Findings are consistent with acute cholecystitis in the correct clinical setting. Consider surgical consultation as clinically appropriate. 2. Diffuse hepatic steatosis. 3. Nonvisualization of the common duct. No intrahepatic biliary duct dilatation. Please correlate with laboratory findings as 2 possible obstruction of the biliary tree. Discussed this case with General surgery. Anticipating surgical intervention. Plan is for departure return for same-day surgery in the morning. Will be given Augmentin here and very riverine assault craft crewman tomorrow. See patient discharge plan for further discussion Medical Records Medical records reviewed: Yes I reviewed the patient's medical records Lab Data Lab results reviewed: Yes I reviewed the patient's lab results Labs: Lab Results 03/07/24 03/07/24 03/07/24 Range/Units 15:03 15:03 15:03 WBC 16.28 H (4.50-11.00) K/uL RBC 4.82 (4.00-5.20) m/uL Hgb 13.3 (12.0-16.0) gm/dL Hct 40.3 (33.0-51.0) % MCV 84 (80-100) fL MCH 28 (26-34) pg MCHC 33 (32-36) gm/dL RDW Coeff of Thu 13.9 (11.5-15.5) % Plt Count 327 (140-440) K/uL Neut % (Auto) 65.2 (42.0-72.0) % Lymph % (Auto) 23.5 (20-44) % Pender % (Auto) 8.2 (0.0-11.0) % Eos % (Auto) 2.0 (0.0-7.0) % Baso % (Auto) 0.2 (0.0-3.0) % Neut # (Auto) 10.60 H (1.7-7.0) K/uL Lymph # (Auto) 3.80 H (0.90-2.90) K/uL Pender # (Auto) 1.30 H (0.00-0.90) K/UL Eos # (Auto) 0.30 (0.00-0.50) K/uL Baso # (Auto) 0.00 (0.00-0.30) K/uL Abs Immat Gran (auto) 0.10 (0.00-0.30) K/uL Imm/Tot Granulo (auto) 0.9 % Sodium 137 (135-149) mmol/L Potassium 3.7 (3.6-5.1) mmol/L Chloride 108 (96-114) mmol/L Carbon Dioxide 18 L (20-32) mmol/L Anion Gap 11 (7-15) mEq/L BUN 13 (5-24) mg/dL Creatinine 0.7 (0.5-1.5) mg/dL Estimated Creat Clear 97.79 Estimated GFR 116 ml/min Glucose 112 (60-115) mg/dL Calcium 9.5 (8.4-10.6) mg/dL Total Bilirubin 0.3 Cancelled (0.1-1.5) mg/dL Direct Bilirubin 0.2 Cancelled (0.0-0.5) mg/dL AST 53 H (12-35) U/L ALT (4-35) U/L Alkaline Phosphatase (40-150) U/L C-Reactive Protein (0.5-1.0) mg/dL Total Protein (6.0-8.3) g/dL Albumin (3.3-5.0) g/dL Lipase (23-300) U/L 03/07/24 03/07/24 03/07/24 Range/Units 15:03 15:03 15:03 WBC (4.50-11.00) K/uL RBC (4.00-5.20) m/uL Hgb (12.0-16.0) gm/dL Hct (33.0-51.0) % MCV (80-100) fL MCH (26-34) pg MCHC (32-36) gm/dL RDW Coeff of Thu (11.5-15.5) % Plt Count (140-440) K/uL Neut % (Auto) (42.0-72.0) % Lymph % (Auto) (20-44) % Pender % (Auto) (0.0-11.0) % Eos % (Auto) (0.0-7.0) % Baso % (Auto) (0.0-3.0) % Neut # (Auto) (1.7-7.0) K/uL Lymph # (Auto) (0.90-2.90) K/uL Pender # (Auto) (0.00-0.90) K/UL Eos # (Auto) (0.00-0.50) K/uL Baso # (Auto) (0.00-0.30) K/uL Abs Immat Gran (auto) (0.00-0.30) K/uL Imm/Tot Granulo (auto) % Sodium (135-149) mmol/L Potassium (3.6-5.1) mmol/L Chloride (96-114) mmol/L Carbon Dioxide (20-32) mmol/L Anion Gap (7-15) mEq/L BUN (5-24) mg/dL Creatinine (0.5-1.5) mg/dL Estimated Creat Clear Estimated GFR ml/min Glucose (60-115) mg/dL Calcium (8.4-10.6) mg/dL Total Bilirubin (0.1-1.5) mg/dL Direct Bilirubin (0.0-0.5) mg/dL AST Cancelled (12-35) U/L ALT 32 Cancelled (4-35) U/L Alkaline Phosphatase 43 Cancelled (40-150) U/L C-Reactive Protein 0.9 (0.5-1.0) mg/dL Total Protein 8.2 (6.0-8.3) g/dL Albumin (3.3-5.0) g/dL Lipase (23-300) U/L 03/07/24 03/07/24 03/07/24 Range/Units 15:03 15:03 15:03 WBC (4.50-11.00) K/uL RBC (4.00-5.20) m/uL Hgb (12.0-16.0) gm/dL Hct (33.0-51.0) % MCV (80-100) fL MCH (26-34) pg MCHC (32-36) gm/dL RDW Coeff of Thu (11.5-15.5) % Plt Count (140-440) K/uL Neut % (Auto) (42.0-72.0) % Lymph % (Auto) (20-44) % Pender % (Auto) (0.0-11.0) % Eos % (Auto) (0.0-7.0) % Baso % (Auto) (0.0-3.0) % Neut # (Auto) (1.7-7.0) K/uL Lymph # (Auto) (0.90-2.90) K/uL Pender # (Auto) (0.00-0.90) K/UL Eos # (Auto) (0.00-0.50) K/uL Baso # (Auto) (0.00-0.30) K/uL Abs Immat Gran (auto) (0.00-0.30) K/uL Imm/Tot Granulo (auto) % Sodium (135-149) mmol/L Potassium (3.6-5.1) mmol/L Chloride (96-114) mmol/L Carbon Dioxide (20-32) mmol/L Anion Gap (7-15) mEq/L BUN (5-24) mg/dL Creatinine (0.5-1.5) mg/dL Estimated Creat Clear Estimated GFR ml/min Glucose (60-115) mg/dL Calcium (8.4-10.6) mg/dL Total Bilirubin (0.1-1.5) mg/dL Direct Bilirubin (0.0-0.5) mg/dL AST (12-35) U/L ALT (4-35) U/L Alkaline Phosphatase (40-150) U/L C-Reactive Protein (0.5-1.0) mg/dL Total Protein Cancelled (6.0-8.3) g/dL Albumin 5.0 Cancelled (3.3-5.0) g/dL Lipase 134 Cancelled (23-300) U/L Discharge Plan Discharge Clinical Impression: Acute cholecystitis, Cholelithiasis Patient Disposition: Home w/ Parent or Adult Condition: Improved
--- NOTE | 2024-03-07 14:53 | CRLHL7_ITS ---
For Patients: As a result of the Century Cures Act, medical imaging exams and procedure reports are released immediately into your electronic medical record. You may view this report before your referring provider. If you have questions, please contact your health care provider. INDICATION: Right upper quadrant pain. COMPARISON: None available. TECHNIQUE: Right upper quadrant grayscale and limited color Doppler ultrasound. FINDINGS: Liver: Diffusely echogenic which is most commonly due to hepatic steatosis. No suspicious focal lesion. No intrahepatic biliary ductal dilatation. Smooth contour. Normal hepatopedal portal venous blood flow. Gallbladder: Gallstones. Positive sonographic Cason`s sign. Normal wall thickness. No pericholecystic free fluid. CBD: Not seen. Pancreas: Normal where visualized. The pancreas is partially obscured and therefore incompletely evaluated. Right Kidney: Normal echotexture. No hydronephrosis. No convincing sonographic evidence of nephrolithiasis. Midline Vasculature: Unremarkable where visualized. Peritoneal Cavity: No significant ascites. Additional Findings: None. IMPRESSION: 1. Cholelithiasis. Positive sonographic Cason`s sign. Findings are consistent with acute cholecystitis in the correct clinical setting. Consider surgical consultation as clinically appropriate. 2. Diffuse hepatic steatosis. 3. Nonvisualization of the common duct. No intrahepatic biliary duct dilatation. Please correlate with laboratory findings as 2 possible obstruction of the biliary tree. Dictated by Lalito Norris MD @ 03/07/2024 3:49:08 PM (Electronically Signed)
[2024-03-07 15:11] LABS: Basophils Percent Auto 0.2 % (0.0-3.0); Hematocrit 40.3 % (33.0-51.0); Hemoglobin* 13.3 gm/dL (12.0-16.0); Immature Granulocytes Pct Auto 0.9 %; Lymphocytes Percent Auto 23.5 % (20-44); Mean Corpuscular HGB Conc 33 gm/dL (32-36); Mean Corpuscular Hemoglobin 28 pg (26-34); Mean Corpuscular Volume 84 fL (80-100); Monocytes Percent Auto 8.2 % (0.0-11.0); Neutrophils Percent Auto 65.2 % (42.0-72.0); Platelet Count* 327 K/uL (140-440); RDW Coefficient of Variation % 13.9 % (11.5-15.5); Red Blood Count 4.82 m/uL (4.00-5.20); White Blood Count* 16.28 K/uL (4.50-11.00)
[2024-03-07] MEDS: 0.9 % SODIUM CHLORIDE 1000 ml 1,000 ML IV (15:13)
[2024-03-07] MEDS: ONDANSETRON 2 MG/ML inj 4 MG IVP (15:14)
[2024-03-07] MEDS: MORPHINE 4 MG/ML INJ IVP (15:16)
[2024-03-07] MEDS: KETOROLAC 15 MG/ML inj IVP (15:18)
[2024-03-07 15:27] LABS: Chloride* 108 mmol/L (96-114)
[2024-03-07 15:28] LABS: Potassium* 3.7 mmol/L (3.6-5.1); Slide Review Reflex No; Sodium* 137 mmol/L (135-149)
[2024-03-07 15:30] LABS: Anion Gap 11 mEq/L (7-15); Aspartate Amino Transferase* 53 U/L (12-35); Bilirubin Direct* 0.2 mg/dL (0.0-0.5); Bilirubin Total* 0.3 mg/dL (0.1-1.5); Carbon Dioxide* 18 mmol/L (20-32); Creatinine* 0.7 mg/dL (0.5-1.5); Est. Creatinine Clearance* 97.79; Estimated Glomerular Filt Rate 116 ml/min; Total Protein* 8.2 g/dL (6.0-8.3)
[2024-03-07 15:31] LABS: Alanine Aminotransferase* 32 U/L (4-35); Alkaline Phosphatase* 43 U/L (40-150); Blood Urea Nitrogen* 13 mg/dL (5-24); Calcium* 9.5 mg/dL (8.4-10.6); Glucose* 112 mg/dL (60-115); Lipase* 134 U/L (23-300)
[2024-03-07 15:33] LABS: C Reactive Protein* 0.9 mg/dL (0.5-1.0)
--- OUTSIDE RECORDS SUMMARY | 2024-03-07 15:59 | XMS_ITS | Clinical Summary ---
Author Organization [facility] Address [address] [place] [address] Care Team Providers Care Manager Respiratory Care Name Role Phone BrysonRowdy robertslam Dunham DO Primary Care Provider Source Comments You are receiving this document as you are listed as the primary care provider,follow-up provider, or the patient has been referred to you for consultation.This is in compliance with the Medicare and[facility] EHR Incentive Program,which states Providers who transition their patient to another setting of careor provider of care or refers their patient to another provider of care shouldprovide summary care record for each transition of care or referral. [facility] Allergies Active Allergy Reactions Criticality Noted Date [...] other agents 07/23/2018 Overview: search codes 1: [id number] search codes 2: [id number] Essential hypertension 04/10/2018 [...] mos) 04/22/2013 Influenza IIV4 (Quadrivalent ) 0.5mL (23909) 05/20/2021,05/27/2020 Influenza, Unspecified Formulation 06/25/2019, MMR 06/27/2002,01/17/1991 [...] T Respiratory Rate 16 07/20/2020 7:51 PM PPA TEACHER Oxygen Saturation 99% 07/19/2020 1:14 AM PPA TEACHER Inhaled Oxygen Concentration - - Weight 97.5 [...] 02/02/2023, 12/28/2021, 01/06/2020, Additional history exists Influenza (#1) 2024 05/20/2021, 10/0 03/2021, 05/27/2020, Additional history exists Adult Preventive Visit [...] test PAP TEST Routine 09/03/2020 12:39 PM PPA TEACHER Screening for malignant neoplasm of cervix HIV 1/2 AG/AB 4TH GEN Routine 01/06/2020 11:58 AM CDT Screening examination for venereal disease from Last 3 Months or Most Recently Relevant to Health Maintenance Results * Hgb A1C (Expected: Now) - Collect in Lab (02/02/2023 7:34 AM CDT) Hemoglobin A1C 5.6 <=5.6 % 02/02/2023 2:39 PM CDT [facility] Estimated Average Glucose (Calc) 114 < 117 mg/dL 02/02/2023 2:39 PM CDT [facility] Comment:Estimated average gl ucose (eAG) converts A1c into glucose units (mg/dL) and estimates average glucose over the past approximately 3 months. The eAG reference interval (<117 mg/dL) corresponds to an A1c of <5.7%. Blood Venipuncture / Unknown 02/02/2023 7:34 AM CDT 02/02/2023 7:34 AM CDT Lucille Lambert PA-C LAB_1 Performing Organization Address [facility] de Phone Number [facility] [address] [phone] * Hepatitis C Virus Lucy with Reflex (12/28/2021 8:45 AM CDT) Hepatitis C Antibody Negative (Non Reactive) Negative (Non Reactive) 12/28/2021 1:38 PM CDT [facility] Comment:Antibodies to HCV no t detected. Does not exclude the possiblity of exposure to HCV. Blood Venipuncture / Unknown 12/28/2021 8:45 AM CDT 12/28/2021 8:51 AM CDT Lucille Lambert PA-C LAB_1 Performing Organization Address [facility] de Phone Number [facility] [address] [place], [place] [address] * PAP Test (09/03/2020 12:39 PM PPA TEACHER) Case Report Pap ? Case: [id number] ? Authorizing Provider: ??Re Nagel, ROGELIO, BOAT WASHER ?? Collected: ? 09/03/2020 1239 ? [facility] ? Received: ?09/03/2020 1740 ? Obstetrics/Gyneco logy ? First Screen: ?Lizzy Huitron CT ? (ASCP) ? Specimen: ?Pap Test, Routine, Cervix/Endocervix ? 09/13/2020 1:23 PM PPA TEACHER [facility] Pap Specimen Adequacy Satisfactory for evaluation, endocervical/kwan sformation zone component present. 09/13/2020 1:23 PM PPA TEACHER [facility] Pap Interpretation Negative for intraepithelial lesion or malignancy (NILM). 09/13/2020 1:23 PM PPA TEACHER [facility] Pap Disclaimer The Pap test is a screening test designed to aid in the detection of cervical cancer and its precursor lesions. It is not a diagnostic procedure and should not be used as the sole means of detecting cervical cancer. Both false-positive and false-negative results may occur. 09/13/2020 1:23 PM PPA TEACHER [facility] Gross Description The specimen is received in SurePath fixative and properly labeled. 1 Pap-stained SurePath slide is prepared. 09/13/2020 1:23 PM PPA TEACHER [facility] Embedded Images 1:23 PM PPA TEACHER [facility] Other Specimen Type ENTIRE ENDOCERVIX / Unknown 09/03/2020 12:39 PM PPA TEACHER 09/03/2020 5:40 PM PPA TEACHER Comment:LMP: Patient's last menstrual period was 10/16/2019 (exact date). Re Nagel APRN, BOAT WASHER LAB PATHOLOGY Performing Organization Address [facility] Co de Phone Number [facility] [address] * HIV 1/2 Ag/Ab 4th Generation (01/06/2020 11:58 AM CDT) HIV 1/2 Antigen/Antib amanda (4th generation) Negative (Non Reactive) Negative (Non Reactive) 01/06/2020 3:12 PM CDT [facility] Comment:HIV-1 p24 Antigen an d HIV-1/HIV-2 Antibody not detected Blood Venipuncture / Unknown 01/06/2020 11:58 AM CDT 01/06/2020 11:59 AM CDT Neida Mendez APRN, CNM LAB_1 Performing Organization Address [facility] Co de Phone Number [facility] [phone] from Last 3 Months or Most Recently Relevant to Health Maintenance Advance Directives * Full Code (Latest Code Status on File) Date Activated Date Inactivated Comments 07/17/2020 8:56 PM 07/21/2020 1:32 AM * Full Code Date Activated Date Inactivated Comments 08/14/2019 5:36 PM 08/14/2019 8:26 PM Care Teams Manager Respiratory Care Relationship Specialty Start Date End Date Jacklyn Gregorio DO [address] [place] [address] PCP - General Family Practice 02/06/23
--- NOTE | 2024-03-07 17:32 | PM.GSCN ---
History of Present Illness Consult details Date Seen: 03/07/24 Consult date: 03/07/24 Narrative: Patient is a 33-year-old female who presented to the emergency department with persistent, severe right upper quadrant abdominal pain. It came on shortly after she ate a chicken salad sandwich. She has had episodes similar to this in the past, but nothing this severe. Her previous episodes would last about 30 minutes, this one persisted which is what brought her in. She was seen by my partner in the beginning of January, for daily left upper quadrant abdominal pain. At that time differential included gastritis versus GERD versus biliary colic. He was recommended that she take a once daily acid occupational therapy professor, Nexium, to see if it improves her symptoms. She has continued to be symptomatic on a daily basis, so the decision was made to proceed with laparoscopic cholecystectomy in early March. Since being in the emergency department her pain is still present, but improved. She denies any associated nausea or vomiting. No fevers or chills. She has never had abdominal surgery before. She is 4 months , not currently . Review of Systems Status of ROS: Reports: 10 or more systems reviewed and unremarkable except as noted in History and below [facility] Medical History RUQ pain ?R10.11 - Right upper quadrant pain (ICD-10) Obesity (BMI 30-39.9) ?E66.9 - Obesity, unspecified (ICD-10) Headache ?R51.9 - Headache, unspecified (ICD-10) Gestational diabetes ?O24.419 - Gestational diabetes mellitus in , unspecified control (ICD-10) Anemia ?D64.9 - Anemia, unspecified (ICD-10) Migraine ?G43.909 - Migraine, unspecified, not intractable, without status migrainosus (ICD-10) Hypertension (2010) ?I10 - Essential (primary) hypertension (ICD-10) PCOS (polycystic ovarian syndrome) ?E28.2 - Polycystic ovarian syndrome (ICD-10) Surgical History Spontaneous vaginal delivery ?O80 - Encounter for full-term uncomplicated delivery (ICD-10) H/O wisdom tooth extraction (2009) ?K08.409 - Partial loss of teeth, unspecified cause, unspecified class (ICD-10) H/O dilation and curettage (2020) ?Z98.890 - Other specified postprocedural states (ICD-10) Family History Father Diabetes High blood pressure, Onset Age: 23 Paternal Grandmother Breast cancer, Onset Age: 39 Maternal Grandmother Multiple myeloma Maternal Grandfather Soft tissue sarcoma Sister Anxiety disorder Social History Narrative: , 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 Few days a week from home Lifetime nonsmoker Rare alcohol use No drug use No regular exercise used to exercise a lot played hockey and lifted weights What is your current living situation?: I presently have a place to live Problems where you live: no known problems In the past 12 months, utilities in danger of being shut off: no In past 12 months, lack of transportation kept you from medical appts, meetings, work, or getting things needed for daily living: no In the past 12 mos, have been you worried that your food would run out before you had money to buy more?: never true In the past 12 mos, the food you bought just didn't last and you didn't have money to buy more?: never true Smoking Status: Never smoker How often does anyone, including family, friends and others, physically hurt you: never How often does anyone, including family, friends and others, insult or talk down to you: never How often does anyone, including family, friends and others, threaten you with harm: never How often does anyone, including family, friends and others, scream or curse at you: never Little interest or pleasure in doing things: not at all Feeling down, depressed, or hopeless: not at all Meds Home Medications and Allergies Home Medications ?Medication ?Instructions ?Recorded ?Confirmed ?Type docosahexaenoic acid 200 mg 200 mg PO DAILY 03/29/23 02/18/24 History capsule ( DHA) esomeprazole magnesium 20 mg 20 mg PO QDAY 02/07/24 02/18/24 History capsule,delayed release (Nexium) Allergies Allergy/AdvReac Type Severity Reaction Status Date / Time No Known Drug Allergies Allergy Verified 07/08/24 08:33 Exam Narrative: Exam Narrative: General: Alert and oriented, no acute distress. Nontoxic Respiratory: Clear breath sounds bilaterally, maintained on room air CV: Regular rhythm and rate, well perfused Abdomen: Soft, some mild tenderness in the right upper quadrant and left upper quadrant with no guarding or rebound. Non peritoneal. Const: Vital Signs, click to edit/add: Vital Signs - 24 hr 03/07/24 14:39 Temperature 97.0 F L Pulse Rate [Right Pulse Oximeter] 97 Respiratory Rate 22 Blood Pressure [Ri ght Upper Arm] 179/108 H Pulse Oximetry 100 Oxygen Delivery Me thod Room Air Results Labs Labs: Abnormal lab results 03/07/24 Range/Units 15:03 WBC 16.28 H (4.50-11.00) K/uL Neut # (Auto) 10.60 H (1.7-7.0) K/uL Lymph # (Auto) 3.80 H (0.90-2.90) K/uL [place] # (Auto) 1.30 H (0.00-0.90) K/UL Carbon Dioxide 18 L (20-32) mmol/L AST 53 H (12-35) U/L Diabetes panel 03/07/24 Range/Units 15:03 Sodium 137 (135-149) mmol/L Potassium 3.7 (3.6-5.1) mmol/L Chloride 108 (96-114) mmol/L Carbon Dioxide 18 L (20-32) mmol/L BUN 13 (5-24) mg/dL Creatinine 0.7 (0.5-1.5) mg/dL Glucose 112 (60-115) mg/dL Calcium 9.5 (8.4-10.6) mg/dL AST 53 H (12-35) U/L ALT 32 (4-35) U/L Alkaline Phosphatase 43 (40-150) U/L Total Protein 8.2 (6.0-8.3) g/dL Albumin 5.0 (3.3-5.0) g/dL Calcium panel 03/07/24 Range/Units 15:03 Calcium 9.5 (8.4-10.6) mg/dL Albumin 5.0 (3.3-5.0) g/dL Pituitary panel 03/07/24 Range/Units 15:03 Sodium 137 (135-149) mmol/L Potassium 3.7 (3.6-5.1) mmol/L Chloride 108 (96-114) mmol/L Carbon Dioxide 18 L (20-32) mmol/L BUN 13 (5-24) mg/dL Creatinine 0.7 (0.5-1.5) mg/dL Glucose 112 (60-115) mg/dL Calcium 9.5 (8.4-10.6) mg/dL Adrenal panel 03/07/24 Range/Units 15:03 Sodium 137 (135-149) mmol/L Potassium 3.7 (3.6-5.1) mmol/L Chloride 108 (96-114) mmol/L Carbon Dioxide 18 L (20-32) mmol/L BUN 13 (5-24) mg/dL Creatinine 0.7 (0.5-1.5) mg/dL Glucose 112 (60-115) mg/dL Calcium 9.5 (8.4-10.6) mg/dL Total Bilirubin 0.3 (0.1-1.5) mg/dL AST 53 H (12-35) U/L ALT 32 (4-35) U/L Alkaline Phosphatase 43 (40-150) U/L Total Protein 8.2 (6.0-8.3) g/dL Albumin 5.0 (3.3-5.0) g/dL All other labs normal. Imaging Abdominal ultrasound report/results: report reviewed and image reviewed Progress Note:A&P Assessment and plan (1) Cholecystitis with cholelithiasis: Status: Acute Assessment and Plan: Patient is a 33-year-old female with clinical workup in history consistent with acute cholecystitis. I had a detailed conversation with the patient regarding the diagnosis of acute cholecystitis. We discussed the treatment options including observation with diet modification and laparoscopic cholecystectomy. We discussed the risks of surgery (including but not limited to) the risks of bleeding, infection, injury to other structures in the abdomen including bile duct injury, bile leak and conversion to an open operation. We discussed the possibility that the patient's pain not improve with surgery. We discussed the possibility of permanent post-operative diarrhea that may require medical management. Additionally, the conceivably of complications requiring additional surgery or further hospitalization were also discussed including the risks of FL, respiratory failure, stroke and blood clots. The patient voiced an understanding of our conversation, had the opportunity to ask questions, agreed to accept the risks of surgery and asked that we proceed with surgery. Patient is hemodynamically stable and nontoxic. Her pain has improved and she feels that she can manage at home for a short period of time. Recommend discharge from the emergency department with antibiotics and oral pain pills. Will have patient come back to the hospital tomorrow morning for same-day surgery laparoscopic cholecystectomy. -OR tomorrow morning at 9:30 a.m., laparoscopic cholecystectomy
[2024-03-07] MEDS: AMOXICILLIN/CLAVULANATE 875 mg/125 mg TABLET PO (17:41)
[2024-03-07] MEDS: FLUCONAZOLE 100 MG TABLET PO (18:07)
[2024-03-08] VITALS (14 sets, daily range): BP systolic 124–161; BP diastolic 81–103; PULSE 83–98; RESP 12–20; TEMP 36.2–37.1; O2SAT 92–96
--- OUTSIDE RECORDS SUMMARY | 2024-03-08 08:11 | XMS_ITS | Clinical Summary ---
Author Organization Formerly [facility] Address [address] [place] [address] Care Team Providers Care Aerosol Line Operator Name Role Phone BrysonRowdy robertslam Dunham DO Primary Care Provider Source Comments You are receiving this document as you are listed as the primary care provider,follow-up provider, or the patient has been referred to you for consultation.This is in compliance with the Medicare and[facility] EHR Incentive Program,which states Providers who transition their patient to another setting of careor provider of care or refers their patient to another provider of care shouldprovide summary care record for each transition of care or referral. Vendavo Allergies Active Allergy Reactions Criticality Noted Date Comments Other 07/23/2018 Patch Test Results 07-23-18 Very Strong/Strong None Mild None Doubtful (Posssible Irritant) Fragrance Mix II Balsam of [place] Methylisothiazolinone Peppermint oil Gold Sodium Thiosulfate Turpentine oil Aluminum Chloride hexahydrate Disodium EDTA Phenoxyethanol Udderly smooth body cream Malaleuca bath bar Medications Medication Sig Dispensed Refills Start Date End Date Status labetalol (TRANDATE) 100 MG tabletIndications:Esse ntial hypertension (HRC) Take 1 Tablet (100 mg) by mouth two times a day. 180 Tablet 3 03/09/2023 Active Active Problems Patient Care Coordination No te Formatting of this note migh t be different from the original. HP Disease and Case Management: Veronica Cruz identified due to . Working with patient during and the initial period to provide support, education, resources. Dnia Breen RN 02/09/2020, 11:39 AM Problem Noted Date Diagnosed Date PCOS (polycystic ovarian syndrome) 12/28/2021 Prediabetes 12/28/2021 Allergic contact dermatitis due to other agents 07/23/2018 Overview: search codes 1: [id number] search codes 2: [id number] Essential hypertension 04/10/2018 [...] mos) 04/22/2013 Influenza IIV4 (Quadrivalent ) 0.5mL (00487) 05/20/2021,05/27/2020 Influenza, Unspecified Formulation 06/25/2019, MMR 06/27/2002,01/17/1991 Pfizer Monovalent 12+ Purple Top 12/10/2020,040 04/2021 Polio, Unspecified Formulation 2,04/13/1990,1989,1989 TDAP (BOOSTRIX) [...] T Respiratory Rate 16 07/20/2020 7:51 PM MANAGER TRANSFER Oxygen Saturation 99% 07/19/2020 1:14 AM MANAGER TRANSFER Inhaled Oxygen Concentration - - Weight 97.5 [...] Additional history exists Adult Preventive Visit 03/09/2025 , 12/28/2021, 12/06/2020, Additional history exists Cervical Cancer Screening 09/03/20252020, 11/14/2016, 09/30/2013 DTaP/Tdap/Td (8 - Tdap) 05/27/2030 05/27/20 20, 10/26/2015, 11/11/1994, Additional history exists Zoster/Shingles (1 of 2) 2039 Hib Completed 09/14/1992, 01/17/1991 HepB Completed 09/30/1999, 09/08/1998, 03/25/1999, Additional history exists HPV Vaccine Completed [...] test PAP TEST Routine 09/03/2020 12:39 PM MANAGER TRANSFER Screening for malignant neoplasm of cervix HIV 1/2 AG/AB 4TH GEN Routine 01/06/2020 11:58 AM CDT Screening examination for venereal disease from Last 3 Months or Most Recently Relevant to Health Maintenance Results * Hgb A1C (Expected: Now) - Collect in Lab (02/02/2023 7:34 AM CDT) Hemoglobin A1C 5.6 <=5.6 % 02/02/2023 2:39 PM CDT [facility] Estimated Average Glucose (Calc) 114 < 117 mg/dL 02/02/2023 2:39 PM CDT [facility] Comment:Estimated average gl ucose (eAG) converts A1c into glucose units (mg/dL) and estimates average glucose over the past approximately 3 months. The eAG reference interval (<117 mg/dL) corresponds to an A1c of <5.7%. Blood Venipuncture / Unknown 02/02/2023 7:34 AM CDT 02/02/2023 7:34 AM CDT Lucille Lambert PA-C LAB_1 Performing Organization Address [facility] Co de Phone Number [facility] [address] [phone] * Hepatitis C Virus Lucy with Reflex (12/28/2021 8:45 AM CDT) Hepatitis C Antibody Negative (Non Reactive) Negative (Non Reactive) 12/28/2021 1:38 PM CDT [facility] Comment:Antibodies to HCV no t detected. Does not exclude the possiblity of exposure to HCV. Blood Venipuncture / Unknown 12/28/2021 8:45 AM CDT 12/28/2021 8:51 AM CDT Lucille Lambert PA-C LAB_1 Performing Organization Address [facility] Co de Phone Number [facility] [address] * PAP Test (09/03/2020 12:39 PM MANAGER TRANSFER) Case Report Pap ? Case: [id number] ? Authorizing Provider: ??Re Nagel, ROGELIO, WEIGH MACHINE OPERATOR ?? Collected: ? 09/03/2020 1239 ? [facility] ? Received: ?09/03/2020 1740 ? Obstetrics/Gyneco logy ? First Screen: ?Lizzy Huitron CT ? (ASCP) ? Specimen: ?Pap Test, Routine, Cervix/Endocervix ? 09/13/2020 1:23 PM MANAGER TRANSFER [facility] Pap Specimen Adequacy Satisfactory for evaluation, endocervical/kwan sformation zone component present. 09/13/2020 1:23 PM MANAGER TRANSFER [facility] Pap Interpretation Negative for intraepithelial lesion or malignancy (NILM). 09/13/2020 1:23 PM MANAGER TRANSFER [facility] Pap Disclaimer The Pap test is a screening test designed to aid in the detection of cervical cancer and its precursor lesions. It is not a diagnostic procedure and should not be used as the sole means of detecting cervical cancer. Both false-positive and false-negative results may occur. 09/13/2020 1:23 PM MANAGER TRANSFER [facility] Gross Description The specimen is received in SurePath fixative and properly labeled. 1 Pap-stained SurePath slide is prepared. 09/13/2020 1:23 PM MANAGER TRANSFER [facility] Embedded Images 1:23 PM MANAGER TRANSFER [facility] Other Specimen Type ENTIRE ENDOCERVIX / Unknown 09/03/2020 12:39 PM MANAGER TRANSFER 09/03/2020 5:40 PM MANAGER TRANSFER Comment:LMP: Patient's last menstrual period was 10/16/2019 (exact date). Re Nagel APRN, WEIGH MACHINE OPERATOR LAB PATHOLOGY Performing Organization Address [facility] Co de Phone Number [facility] [address] * HIV 1/2 Ag/Ab 4th Generation (01/06/2020 11:58 AM CDT) HIV 1/2 Antigen/Antib amanda (4th generation) Negative (Non Reactive) Negative (Non Reactive) 01/06/2020 3:12 PM CDT [facility] Comment:HIV-1 p24 Antigen an d HIV-1/HIV-2 Antibody not detected Blood Venipuncture / Unknown 01/06/2020 11:58 AM CDT 01/06/2020 11:59 AM CDT Neida Mendez APRN, KAVON LAB_1 Performing Organization Address [facility] Co de Phone Number [facility] [address] from Last 3 Months or Most Recently Relevant to Health Maintenance Advance Directives * Full Code (Latest Code Status on File) Date Activated Date Inactivated Comments 07/17/2020 8:56 PM 07/21/2020 1:32 AM * Full Code Date Activated Date Inactivated Comments 08/14/2019 5:36 PM 08/14/2019 8:26 PM Care Teams Aerosol Line Operator Relationship Specialty Start Date End Date Jacklyn Gregorio DO [address] [place] [address] PCP - General Family Practice 02/06/23
[2024-03-08 09:22] LABS: Ur HCG Qualitative* Negative (Negative)
[2024-03-08] MEDS: PIPERACILLIN/TAZOBACTAM 3.375 GM in 0.9 % SODIUM CHLORIDE Mini-bag 100 ML IVPB (09:50)
[2024-03-08] MEDS: LACTATED RINGERS 1000 ML 1,000 ML 125 ML IV (10:01)
--- NOTE | 2024-03-08 10:10 | W.ANESCHARGE ---
Anesthesia Charges Start Date/Time Anesthesia Start Date: 03/08/24 Anesthesia Start Time: 09:35 Stop Date/Time Anesthesia Stop Date: 03/08/24 Anesthesia Stop Time: 11:01 Summary Emergency: [employer] SYSTEMS ADMINISTRATOR
[2024-03-08] MEDS: BUPIVACAINE 0.5% 30 ML INJECTION (10:38)
--- NOTE | 2024-03-08 10:52 | P.GSOP_ITS ---
Operative Note Date of procedure: 03/08/24 Pre-op diagnosis: Acute cholecystitis Post-op diagnosis: Same Type of Procedure: Laparoscopic cholecystectomy Indications: Patient is a 33-year-old female who presented to the emergency department with clinical workup and history consistent with acute cholecystitis. Risks and benefits of operative intervention were discussed at length with the patient. Risks included but was not limited to: Bleeding, infection, risk of damage to surrounding structures, possible need for additional procedures, possible need to convert to an open operation and postoperative complications such as pneumonia, pulmonary emboli or NH. All questions and concerns were addressed with the patient agreeing to proceed. Procedure Description: After discussing the risks and benefits of the procedure, the patient signed informed consent.? The operative site was marked and the patient was brought to the operating room and placed on the operating table in supine position.? Care was taken to pad the patient's pressure points.?? The patient was then intubated by anesthesia.?? The operative site was then prepped and draped in the usual sterile fashion.? A time-out was then performed. Entrance to the abdomen was gained via a 5 mm Visiport in the left upper quadra nt. The abdomen was insufflated and briefly surveyed for signs of injury. There was none. 11 mm supra umbilical port was placed as well as 2 working ports along the right costal margin. Patient was then placed in reverse Trendelenburg position with the right side up. The gallbladder fundus was grasped and retracted cephalad. A small amount of dissection was needed to free omental adhesions from the gallbladder. The infundibulum was grasped. A combination of hook cautery and blunt dissection was used to carefully dissect out the cystic duct and artery until they could clearly be seen entering the gallbladder without any intervening structures. The gallbladder was dissected off the cystic plate to achieve the critical view. Once this was achieved the cystic duct and artery were each clipped with 2 clips proximally and 1 clip distally and transected with the scissors. The gallbladder was then taken off of the liver bed. And removed from the abdomen using an Endo-Catch bag. The gallbladder bed was surveyed for hemostasis, which was excellent. The umbilical port fascia was closed with 0 Vicryl via the Melvin-Edouard. All of the ports were then removed under direct vision. The skin was closed with absorbable subcuticular suture. Instrument sponge and needle counts were correct at the end of the case. The patient was then woken and transferred to the PACU in stable condition. Findings: Acute cholecystitis Anesthesia: GETA Surgeon: Yulisa Bolton MD Estimated blood loss (mL): 5 Specimen: Gallbladder Condition: stable Disposition: PACU
[2024-03-08] MEDS: fentaNYL 100 MCG/2 ML inj 50 MCG IVP ×2 (11:16→11:25)
--- NOTE | 2024-03-08 11:47 | SUR.PHASEI ---
patient met discharge criteria per anesthesia
[2024-03-08] MEDS: HYDROmorphone 0.5 mg/0.5 ml inj IVP (12:08)
[2024-03-08] MEDS: ONDANSETRON 2 MG/ML inj IVP (13:04)
--- NOTE | 2024-03-08 16:27 | PC.NURSE ---
shiftnote: pt up to bathroom and voided 400cc. IV dc'd intact. pt had slight nausea and received zofran with relief. Pt ate juice, darryl crackers. Reviewed dc instructions and copies sent with pt at in. Belongings sent with pt at in.
--- OUTSIDE RECORDS SUMMARY | 2024-03-13 16:21 | XMS_ITS | Clinical Summary ---
Author Organization Formerly [facility] Address [address] [place] [address] Care Team Providers Care Cotton Roll Packer Name Role Phone BrysonRowdy robertslam Dunham DO Primary Care Provider Source Comments You are receiving this document as you are listed as the primary care provider,follow-up provider, or the patient has been referred to you for consultation.This is in compliance with the Medicare and[facility] EHR Incentive Program,which states Providers who transition their patient to another setting of careor provider of care or refers their patient to another provider of care shouldprovide summary care record for each transition of care or referral. [employer] Allergies Active Allergy Reactions Criticality Noted Date [...] other agents 07/23/2018 Overview: search codes 1: [id number] search codes 2: [id number] Essential hypertension 04/10/2018 [...] mos) 04/22/2013 Influenza IIV4 (Quadrivalent ) 0.5mL (54999) 05/20/2021,05/27/2020 Influenza, Unspecified Formulation 06/25/2019, MMR 06/27/2002,01/17/1991 [...] T Respiratory Rate 16 07/20/2020 7:51 PM BILLING ASSOCIATE Oxygen Saturation 99% 07/19/2020 1:14 AM BILLING ASSOCIATE Inhaled Oxygen Concentration - - Weight 97.5 [...] test PAP TEST Routine 09/03/2020 12:39 PM BILLING ASSOCIATE Screening for malignant neoplasm of cervix HIV 1/2 AG/AB 4TH GEN Routine 01/06/2020 11:58 AM CDT Screening examination for venereal disease from Last 3 Months or Most Recently Relevant to Health Maintenance Results * Hgb A1C (Expected: Now) - Collect in Lab (02/02/2023 7:34 AM CDT) Hemoglobin A1C 5.6 <=5.6 % 02/02/2023 2:39 PM CDT [facility] Estimated Average Glucose (Calc) 114 < 117 mg/dL 02/02/2023 2:39 PM CDT [facility] Comment:Estimated average gl ucose (eAG) converts A1c into glucose units (mg/dL) and estimates average glucose over the past approximately 3 months. The eAG reference interval (<117 mg/dL) corresponds to an A1c of <5.7%. Blood Venipuncture / Unknown 02/02/2023 7:34 AM CDT 02/02/2023 7:34 AM CDT Lucille Lambert PA-C LAB_[address] [facility] Co de Phone Number [facility] [address] [phone] * Hepatitis C Virus Lucy with Reflex (12/28/2021 8:45 AM CDT) Hepatitis C Antibody Negative (Non Reactive) Negative (Non Reactive) 12/28/2021 1:38 PM CDT [facility] Comment:Antibodies to HCV no t detected. Does not exclude the possiblity of exposure to HCV. Blood Venipuncture / Unknown 12/28/2021 8:45 AM CDT 12/28/2021 8:51 AM CDT Lucille Lambert PA-C LAB_1 Performing Organization Address [facility] Co de Phone Number [facility] [address] * PAP Test (09/03/2020 12:39 PM BILLING ASSOCIATE) Case Report Pap ? Case: [id number] ? Authorizing Provider: ??Re Nagel, ROGELIO, AUTOMOTIVE PRODUCT SPECIALIST ?? Collected: ? 09/03/2020 1239 ? [facility] ? Received: ?09/03/2020 1740 ? Obstetrics/Gyneco logy ? First Screen: ?Lizzy Huitron CT ? (ASCP) ? Specimen: ?Pap Test, Routine, Cervix/Endocervix ? 09/13/2020 1:23 PM BILLING ASSOCIATE [facility] Pap Specimen Adequacy Satisfactory for evaluation, endocervical/kwan sformation zone component present. 09/13/2020 1:23 PM BILLING ASSOCIATE [facility] Pap Interpretation Negative for intraepithelial lesion or malignancy (NILM). 09/13/2020 1:23 PM BILLING ASSOCIATE [facility] Pap Disclaimer The Pap test is a screening test designed to aid in the detection of cervical cancer and its precursor lesions. It is not a diagnostic procedure and should not be used as the sole means of detecting cervical cancer. Both false-positive and false-negative results may occur. 09/13/2020 1:23 PM BILLING ASSOCIATE [facility] Gross Description The specimen is received in SurePath fixative and properly labeled. 1 Pap-stained SurePath slide is prepared. 09/13/2020 1:23 PM BILLING ASSOCIATE [facility] Embedded Images 1:23 PM BILLING ASSOCIATE [facility] Other Specimen Type ENTIRE ENDOCERVIX / Unknown 09/03/2020 12:39 PM BILLING ASSOCIATE 09/03/2020 5:40 PM BILLING ASSOCIATE Comment:LMP: Patient's last menstrual period was 10/16/2019 (exact date). Re Nagel APRN, AUTOMOTIVE PRODUCT SPECIALIST LAB PATHOLOGY Performing Organization Address [facility] Co de Phone Number [facility] [address] * HIV 1/2 Ag/Ab 4th Generation (01/06/2020 11:58 AM CDT) HIV 1/2 Antigen/Antib amanda (4th generation) Negative (Non Reactive) Negative (Non Reactive) 01/06/2020 3:12 PM CDT [facility] Comment:HIV-1 p24 Antigen an d HIV-1/HIV-2 Antibody not detected Blood Venipuncture / Unknown 01/06/2020 11:58 AM CDT 01/06/2020 11:59 AM CDT Neida Mendez APRN, KAVON LAB_1 Performing [address] [facility] Co de Phone Number [facility] [address] from Last 3 Months or Most Recently Relevant to Health Maintenance Advance Directives * Full Code (Latest Code Status on File) Date Activated Date Inactivated Comments 07/17/2020 8:56 PM 07/21/2020 1:32 AM * Full Code Date Activated Date Inactivated Comments 08/14/2019 5:36 PM 08/14/2019 8:26 PM Care Teams Cotton Roll Packer Relationship Specialty Start Date End Date Jacklyn Gregorio DO [address] [place] [address] PCP - General Family Practice 02/06/23
== END 2024-03-08 15:35 | disposition home or self-care (01) ==
LOC: ED 18:09 → MEDSURG 03-08 08:21 → SS 03-13 16:19 → MEDSURG 03-13 16:20
PROVIDERS: Emergency Provider Family Medicine; PCP Internal Medicine; Visit Provider Surgery
PROC: 0FT44ZZ Resection of Gallbladder, Percutaneous Endoscopic Approach (ICD-10-PCS; CPT 47562; principal; 2024-03-08 09:30)
DX: K80.00 Calculus of gallbladder with acute cholecystitis without obstruction (principal); R10.11 Right upper quadrant pain; E66.9 Obesity, unspecified; I10 Essential (primary) hypertension; Z68.36 Body mass index [BMI] 36.0-36.9, adult
CPT/HCPCS: 47562; 00790; 36415; 76705; 80048; 80076; 81025; 83690; 85025; 86140; 88304; 99140; 99284; 99285; A9270; J0330; J0665; J1100; J1170; J1885; J2250; J2270; J2405; J2543; J2704; J3010; J7030; J7120

== ENCOUNTER 2024-04-10 16:00 | Outpatient (RCR) | payer OTHER, SELFPAY | END 2024-08-08 23:59 | disposition home or self-care (01) | PROVIDERS: PCP Family Medicine; Visit Provider Family Medicine | DX: N39.3 Stress incontinence (female) (male) (principal); R10.2 Pelvic and perineal pain; N94.10 Unspecified dyspareunia; Z51.89 Encounter for other specified aftercare | CPT/HCPCS: 97112; 97140; 97162; 97530 ==